=== PATIENT | female | born 1930 | race Caucasian/White ===

== ENCOUNTER 2017-10-29 08:06 | Inpatient (IN) | payer OTHER ==
[2017-10-02 14:13] VITALS: BMI 24.0
--- NOTE | 2017-10-02 14:42 | PAT Medication Instructions ---
Service Date Oct 02, 2017. Current Home Medication List Acetaminophen (Tylenol), 2 TAB PO Q6 PRN for Pain Amlodipine (Norvasc), 5 MG PO QPM Aspirin (Aspirin Ec), 81 MG PO HS Bifidobacterium (Align), 1 CAP PO QD PRN for PRN Biotin (Biotin 5000), 1 CAP PO QAM Cetirizine (Zyrtec), 10 MG PO HS Cholecalciferol (Vitamin D3), 1 CAP PO QAM Famotidine (Pepcid), 20 MG PO QD PRN for Indigestion Hctz/Losartan (Hyzaar 25MG/100MG), 1 TAB PO QAM Levothyroxine Sodium (Levothyroxine Sodium), 1 TAB PO QAM Metoprolol Succinate (Toprol Xl), 25 MG PO QAM Medication Instructions For Your Scheduled Surgery - Hold the following medications the morning of surgery: Bifidobacterium (Align), 1 CAP PO QD PRN for PRN Biotin (Biotin 5000), 1 CAP PO QAM Cholecalciferol (Vitamin D3), 1 CAP PO QAM Hctz/Losartan (Hyzaar 25MG/100MG), 1 TAB PO QAM Famotidine (Pepcid), 20 MG PO QD PRN for Indigestion - Take the following medications the morning of surgery with a sip of water: Levothyroxine Sodium (Levothyroxine Sodium), 1 TAB PO QAM Metoprolol Succinate (Toprol Xl), 25 MG PO QAM Acetaminophen (Tylenol), 2 TAB PO Q6 PRN for Pain (okay to take up to 4 hours prior to surgery if needed) - Take the following medications as scheduled the night before surgery: Famotidine (Pepcid), 20 MG PO QD PRN for Indigestion (if needed) Cetirizine (Zyrtec), 10 MG PO HS Aspirin (Aspirin Ec), 81 MG PO HS Amlodipine (Norvasc), 5 MG PO QPM Bifidobacterium (Align), 1 CAP PO QD PRN for PRN (if needed) Acetaminophen (Tylenol), 2 TAB PO Q6 PRN for Pain (if needed) If you have any questions please call us at [phone] or [phone] or [phone]
--- NOTE | 2017-10-02 15:30 | DIAGNOSTIC IMAGING REPORT ---
CHEST 2 VIEWS ROUTINE CLINICAL HISTORY: pat preoperative evaluation COMPARISON STUDY: No previous studies for comparison. FINDINGS: The bones soft tissues and hemidiaphragms are normal. The cardiomediastinal silhouette is normal. The lungs are clear. The pulmonary vasculature is normal. IMPRESSION: Negative chest. The above report was generated using voice recognition software. It may contain grammatical, syntax or spelling errors. Electronically signed by: Mina Ward M.D. 10/02/2017 3:29 PM Dictated Date/Time: 10/02/2017 3:29 PM
[2017-10-02 16:11] LABS: BASO % 1.2 %; BASO ABS # 0.06 K/uL (0-0.2); HEMATOCRIT 36.4 % (37-47); HEMOGLOBIN 12.3 g/dL (12.0-16.0); IG# 0.01 K/uL (0.00-0.02); LYMPH % 33.2 %; LYMPH ABS # 1.67 K/uL (1.2-3.4); MEAN CELL VOLUME 95.3 fL (80-100); MEAN CORPUSCULAR HEMOGLOBIN 32.2 pg (25-34); MEAN CORPUSCULAR HGB CONC 33.8 g/dl (32-36); MEAN PLATELET VOLUME 10.1 fL (7.4-10.4); MONO % 11.7 %; MONO ABS # 0.59 K/uL (0.11-0.59); NEUT % 47.7 %; PLATELET COUNT 229 K/uL (130-400); RED CELL DISTRIBUTION WIDTH CV 12.8 % (11.5-14.5); RED CELL DISTRIBUTION WIDTH SD 44.1 fL (36.4-46.3); WHITE BLOOD COUNT 5.03 K/uL (4.8-10.8)
[2017-10-02 16:19] LABS: ALBUMIN 3.6 gm/dl (3.4-5.0); CALCIUM 9.1 mg/dl (8.5-10.1); CREATININE 1.5 mg/dl (0.60-1.20); POTASSIUM 4.4 mmol/L (3.5-5.1)
[2017-10-02 16:21] LABS: PTT PATIENT 23.2 SECONDS (21.0-31.0)
[2017-10-03 07:24] LABS: HEMOGLOBIN A1C 5.5 % (4.5-5.6)
--- NOTE | 2017-10-28 18:53 | HISTORY & PHYSICAL EXAMINATION ---
DATE OF ADMISSION: 10/29/2017 CHIEF COMPLAINT: Right knee pain. HISTORY OF PRESENT ILLNESS: This is an 87-year-old female patient of Dr. Mayfield'adela complaining of chronic right knee pain, longstanding, now progressively getting worse. The patient has been diagnosed with end-stage osteoarthritis per clinical and radiographic exams. The patient has failed conservative treatment including intraarticular injections and the use of a knee brace as well as the use of [id number] analgesics. The patient has increased pain with weightbearing activities and her pain does interfere with her activities of daily living. PAST MEDICAL HISTORY: Hypertension, hypothyroidism, osteoarthritis, spine problems, neck problems, back problems, sciatica, acid reflux, stage IV kidney disease. SOCIAL HISTORY: Nonsmoker, nondrinker. FAMILY HISTORY: Noncontributory. REVIEW OF SYSTEMS: The patient complains of chronic right knee pain, otherwise denies any shortness of breath, chest pain, nausea, vomiting or any other joint complaints. PAST SURGICAL HISTORY: Hysterectomy, cholecystectomy, carpal tunnel, knee surgery, colon resection and cataract surgery. MEDICATIONS: 1. Cipro 1 tablet every 12 hours for 10 days as needed for allergies, currently not taking. 2. Amlodipine 5 mg daily. 3. Levothyroxine 50 mcg 1 tablet q.a.m. 4. Losartan/hydrochlorothiazide 100/25 daily q.a.m. 5. Metoprolol 25 mg daily. 6. Biotin 5 mg daily. 7. Aspirin 81 mg daily. 8. Pepcid 20 mg at bedtime p.r.n. heartburn. 9. Zyrtec 10 mg daily. 10. Probiotic 4 mg capsule daily. 11. Vitamin D 2000 units daily. 12. Extra strength Tylenol as needed. ALLERGIES: IV DYE, MORPHINE, AMOXICILLIN, ZOCOR, AND IBUPROFEN. PHYSICAL EXAMINATION: GENERAL: Well-developed, well-nourished 87-year-old female in no acute distress. She is alert and oriented x3 and pleasant. HEENT: Normocephalic, atraumatic. Extraocular motions are intact. Pupils are equal and reactive to light. HEART: Regular rate and rhythm, no murmurs appreciated. LUNGS: Clear. ABDOMEN: Soft and nontender, bowel sounds are present. EXTREMITIES: Right knee reveals a valgus deformity. She has a limited range of motion of 0-120 with crepitation. She has a mild effusion. 4/5 strength. NEUROLOGIC: Neurovascularly intact in her right lower extremity. DIAGNOSES: Right knee end-stage osteoarthritis, hypertension, hypothyroidism, osteoarthritis, spine problems, neck problems, back problems, sciatica, acid reflux and stage IV kidney disease. PLAN: The patient was advised of her diagnosis. Indications, risks, benefits, and postop course have all been reviewed. The patient wishes to proceed with a right total knee arthroplasty. Necessary consent forms, preoperative testing and clearances will be obtained.
[2017-10-29] VITALS (8 sets, daily range): BP systolic 127–187; BP diastolic 63–76; PULSE 67–78; TEMP 36.5–37; O2SAT 95–100; Ht 167.6 cm; Wt 68.0 kg
[~2017-10-29] VITALS: Ht 167.6 cm; Wt 68.0 kg
[~2017-10-29 08:06] MED LIST: ACET-1256 PO; ACETAMINOPHEN 500 MG TAB PO SCH; ALG PO; AMLO-110 PO; ASPI81TA28 PO; BIOTCAP2 PO; BUPIVACAINE 0.5 % 5 MG/1 ML PF 10ML VIAL ONE; CETI10TA84 PO; CHOL2000 PO; DEXAMETHASONE 4 MG TAB PO SCH; FAMO20TA11 PO; FAMOTIDINE 20 MG TAB PO SCH; GABAPENTIN 300 MG CAP PO SCH; HYZ/10015 PO; LEVO50TA6 PO; METO25TA4 PO; METOCLOPRAMIDE HCL 10 MG TAB PO SCH; ROPIVACAINE 5MG/ML 30 ML 150 MG, BUPIVACAINE 0.5% MPF INJ 30 ML, EpINEphrine HCL INJ 0.... INFIL SCH; SODIUM CHLORIDE 0.9% 1000ML 1,000 ML IV SCH; VANCOMYCIN 1GM/270ML NSS 270 ML IV SCH; [UNRECOGNIZED DRUG - REMARK] SCH
[2017-10-29] MEDS ORDERED: MIDAZOLAM HCL 1 MG/ML 2ML VIAL ONE (09:24)
[2017-10-29] MEDS ORDERED: FENTANYL CITRATE INJ 50 MCG/1 ML 2 ML VIAL ONE (09:24)
[2017-10-29] MEDS ORDERED: ONDANSETRON INJ 2 MG/ML 2 ML VIAL ONE (09:29)
[2017-10-29] MEDS ORDERED: PROPOFOL IV EMULSION 10 MG/ML 20 ML VIAL IV ONE (09:29)
[2017-10-29] MEDS ORDERED: LIDOCAINE HCL 2% 2 ML VIAL (20MG/ML) ONE (09:29)
[2017-10-29] MEDS ORDERED: LABETALOL HCL IV 5 MG/ML 20ML IV ONE (09:32)
--- NOTE | 2017-10-29 09:42 | History & Physical Bridge Note ---
H&P Re-Evaluation Bridge Note: I have examined the patient, reviewed the History & Physical and in the interval since the performance of the History & Physical I have noted the following changes of clinical significance: No changes noted
[2017-10-29] MEDS ORDERED: ATROPINE SULFATE 0.1 MG/ML 5ML SYR IV PRN (09:45)
[2017-10-29] MEDS ORDERED: FENTANYL CITRATE INJ 50 MCG/1 ML 2 ML VIAL IV PRN (09:45)
[2017-10-29] MEDS ORDERED: ONDANSETRON INJ 2 MG/ML 2 ML VIAL IV PRN ×2 (09:45→13:45)
[2017-10-29] MEDS ORDERED: EpHEDrine SULFATE INJ 50 MG/ML AMP IV PRN (09:45)
[2017-10-29] MEDS ORDERED: ORTHO JOINT ANESTHETIC ONE (09:59)
[2017-10-29] MEDS ORDERED: BACITRACIN 50000 UNIT VIAL ONE (09:59)
[2017-10-29] MEDS ORDERED: POVIDONE-IODINE OP SOLN 30 ML BTL ONE (09:59)
--- NOTE | 2017-10-29 13:16 | [facility] Post Operative Brief Note ---
Immediate Operative Summary Operative Date Oct 29, 2017. Pre-Operative Diagnosis right knee djd oa Post-Operative Diagnosis same Procedure(s) Performed right TKA Surgeon Chaparro Cocoa Bean Roaster Surgeon(s) Reji Estimated Blood Loss 5 Findings Consistent with Post-Op Diagnosis Specimens bone cuts Drains 2 hemovac Anesthesia Type MAC Spinal Regional Complication(s) none Disposition Disposition: Recovery Room / PACU
[2017-10-29] MEDS ORDERED: OXYCODONE HCL IR 5 MG TAB (IMMEDIATE RELEASE) PO PRN (13:45)
[2017-10-29] MEDS ORDERED: LACTOBACILLUS ACIDOPHILUS (FLORANEX) TAB PO PRN (13:45)
[2017-10-29] MEDS ORDERED: VANCOMYCIN CONSULT ACTIVE PRN (13:45)
[2017-10-29] MEDS ORDERED: ZOLPIDEM TARTRATE 5 MG TAB PO PRN (13:45)
[2017-10-29] MEDS ORDERED: BISACODYL 10 MG SUPP PR PRN (13:45)
[2017-10-29] MEDS ORDERED: MAGNESIUM HYDROXIDE SUSP 30 ML UDC PO PRN (13:45)
[2017-10-29] MEDS ORDERED: FAMOTIDINE 20 MG TAB PO PRN (13:45)
[2017-10-29] MEDS ORDERED: HYDROmorphone INJ 0.5 MG/0.5 ML SYR IV PRN (13:45)
[2017-10-29] MEDS ORDERED: SOD PHOSPHATE/SOD BIPHOSPHATE ENEMA 132 ML BTL PR PRN (13:45)
--- NOTE | 2017-10-29 14:11 | DIAGNOSTIC IMAGING REPORT ---
R KNEE 1 OR 2 VIEWS ROUTINE CLINICAL HISTORY: Postop knee arthroplasty COMPARISON: None. DISCUSSION: There are postsurgical changes of a total right knee arthroplasty and patellar resurfacing. The femoral and tibial components appear well seated. Overlying skin penny and surgical drains are evident. There is a small amount of air within soft tissues consistent with recent surgery. IMPRESSION: Postsurgical changes of a total right knee arthroplasty Electronically signed by: Pio Pollock M.D. 10/29/2017 2:10 PM Dictated Date/Time: 10/29/2017 2:09 PM
--- NOTE | 2017-10-29 14:14 | Anesthesiology Progress Note ---
Anesthesia Post Op Note Date & Time Oct 29, 2017 at 14:13 Vital Signs Pain Intensity: 0 Vital Signs Past 12 Hours Date Time Temp Pulse Resp B/P (MAP) Pulse Ox O2 Delivery O2 Flow Rate FiO2 10/29/17 14:08 36.8 10/29/17 14:05 66 15 99 10/29/17 14:05 67 15 10/29/17 14:02 154/58 10/29/17 14:00 73 17 99 10/29/17 14:00 70 17 10/29/17 13:56 150/77 10/29/17 13:55 74 13 99 10/29/17 13:55 68 13 10/29/17 13:54 69 19 100 10/29/17 13:54 68 19 10/29/17 13:51 138/61 10/29/17 13:49 69 16 99 10/29/17 13:49 70 16 10/29/17 13:46 146/79 10/29/17 13:44 73 16 10/29/17 13:44 74 16 100 10/29/17 13:41 141/60 10/29/17 13:39 75 19 10/29/17 13:39 75 19 100 10/29/17 13:36 134/58 10/29/17 13:34 36.4 79 16 129/60 97 Nasal Cannula 4 10/29/17 13:34 78 10/29/17 13:34 78 129/60 96 10/29/17 08:40 36.6 70 16 174/76 99 Room Air Notes Mental Status: alert / awake / arousable, participated in evaluation Pt Amnestic to Procedure: Yes Nausea / Vomiting: adequately controlled Pain: adequately controlled Airway Patency, RR, SpO2: stable & adequate BP & HR: stable & adequate Hydration State: stable & adequate Neuraxial Anesthesia: was administered, sensory block is resolving Anesthetic Complications: no major complications apparent
[2017-10-29] MEDS: TRANEXAMIC ACID INJ 1,000 MG x 2 Bags IV SCH ×4 (15:08→15:09)
[2017-10-29] MEDS: TRAMADOL HCL 50 MG TAB PO PRN ×2 (16:22→20:29)
[2017-10-29] MEDS: D5W AND 1/2NSS + 20MEQ KCL 1,000 ML IV SCH (16:27)
[2017-10-29 17:07] LABS: HEMATOCRIT 36.2 % (37-47); HEMOGLOBIN 12.3 g/dL (12.0-16.0); MEAN CORPUSCULAR HEMOGLOBIN 32.3 pg (25-34); MEAN PLATELET VOLUME 9.1 fL (7.4-10.4); PLATELET COUNT 215 K/uL (130-400); RED CELL DISTRIBUTION WIDTH CV 12.6 % (11.5-14.5); RED CELL DISTRIBUTION WIDTH SD 43.1 fL (36.4-46.3); WHITE BLOOD COUNT 5.07 K/uL (4.8-10.8)
[2017-10-29 17:25] LABS: CALCIUM 8.3 mg/dl (8.5-10.1); CREATININE 1.7 mg/dl (0.60-1.20); POTASSIUM 4.1 mmol/L (3.5-5.1)
--- NOTE | 2017-10-29 19:45 | Medical Consult ---
Consultation Date of Consultation: Oct 29, 2017. Attending Physician: Pillo Mayfield M.D. Reason for Consultation: Medical management History of Present Illness 87-year-old female with PMH of osteoarthritis, HTN, Hypothyroidism, CKD with longstanding chronic right knee pain failed conservative management including intraarticular injections, used of knee brace and pain control. Due to increased pain with weightbearing activities she had right TKA surgery done this morning by Dr. Mayfield. [facility] was consulted for medical management. Pt was lying in bed with no distress with daughter at bedside. She said that she does not have any pain at this moment. Denies any chest pain, palpitation, dizziness and SOB. Past Medical/Surgical History Osteoarthritis HTN Hypothyroidism CKD Social History Smoking Status: Never Smoker Allergies Coded Allergies: Alendronate (Verified Allergy, Unknown, GI ISSUES, 10/02/17) Amoxicillin (Verified Allergy, Unknown, RASH, 10/02/17) Ciprofloxacin (Verified Allergy, Unknown, HIVES, 10/02/17) Ibuprofen (Verified Allergy, Unknown, SWELLING, 10/02/17) Iodinated Diagnostic Agents (Verified Allergy, Unknown, HIVES, FLUSHING, "TURNED RED", 10/02/17) Metoclopramide (Verified Allergy, Unknown, UNKNOWN RXN PER PATIENT, ) Simvastatin (Verified Allergy, Unknown, MUSCLE COMPLAINTS, 10/02/17) Morphine (Verified Adverse Reaction, Unknown, NAUSEA AND VOMITING, 10/02/17 ) Current Inpatient Medications Current Inpatient Medications Medications (Trade) Dose Ordered Sig/Minal Route Start Time Stop Time Status Last Admin Dose Admin Sodium Chloride 1,000 ml @ 15 mls/hr Q24H IV 10/29/17 06:00 10/30/17 05:59 Amlodipine Besylate (Norvasc Tab) 5 mg QPM PO 10/29/17 21:00 11/28/17 20:59 Cetirizine HCl (zyrTEC TAB) 10 mg HS PO 10/29/17 21:00 11/28/17 20:59 Famotidine (Pepcid Tab) 20 mg QD PRN PO 10/29/17 13:45 11/28/17 13:44 HCTZ/Losartan Potassium (Hyzaar 50-12.5 Tab) 1 tab QAM PO 10/30/17 09:00 11/29/17 08:59 Levothyroxine Sodium (Synthroid Tab) 50 mcg DAILYBB PO 10/30/17 06:00 11/29/17 06:59 Metoprolol Succinate (Toprol Xl Tab) 25 mg QAM PO 10/30/17 09:00 11/29/17 08:59 Lactobacillus Acidophilus (Floranex Tab) 1 tab QD PRN PO 10/29/17 13:45 11/28/17 13:44 Cholecalciferol (Vitamin D Tab) 2,000 inter.unit QAM PO 10/30/17 09:00 11/29/17 08:59 Potassium Chloride/Dextrose/ Sod Cl 1,000 ml @ 100 mls/hr Q10H IV 10/29/17 15:15 10/30/17 13:33 10/29/17 16:27 100 MLS/HR Vancomycin HCl 1000 mg/Sodium Chloride 270 ml @ 125 mls/hr TODAY@2100 IV 10/29/17 21:00 10/29/17 23:10 Oxycodone HCl (Roxicodone Immediate Rel Tab) 1 TABLET FOR PAIN RATING... Q4H PRN PO 10/29/17 13:45 11/12/17 13:44 Magnesium Hydroxide (Milk Of Magnesia Susp) 30 ml Q6H PRN PO 10/29/17 13:45 11/28/17 13:44 Bisacodyl (Dulcolax Supp) 10 mg DAILY PRN WA 10/29/17 13:45 11/28/17 13:44 Sodium Biphosphate/ Sodium Phosphate (Fleet Enema) 132 ml DAILY PRN [place] 10/29/17 13:45 11/28/17 13:44 Docusate Sodium (coLACE CAP) 100 mg BID PO 10/29/17 21:00 11/28/17 20:59 Diphenhydramine HCl (Benadryl Cap) 25 mg Q8H PRN PO 10/29/17 13:45 11/28/17 13:44 Zolpidem Tartrate (Ambien Tab) 5 mg HSZ PRN PO 10/29/17 13:45 11/28/17 13:44 Multivitamins (Multivitamin Tab) 1 tab QAM PO 10/30/17 09:00 11/29/17 08:59 Ondansetron HCl (Zofran Inj) 4 mg Q6H PRN IV 10/29/17 13:45 11/28/17 13:44 Pantoprazole Sodium (Protonix Tab) 40 mg QAM PO 10/30/17 09:00 11/02/17 09:01 Tramadol HCl (Ultram Tab) 1 tablet for pain rating... Q4H PRN PO 10/29/17 13:45 11/28/17 13:44 10/29/17 16:22 100 MG Aspirin (Ecotrin Tab) 81 mg BID PO 10/29/17 21:00 11/28/17 20:59 Hydromorphone HCl (Dilaudid Inj) 0.5 mg Q4H PRN IV 10/29/17 13:45 11/12/17 13:44 Acetaminophen 1000 mg/Empty Bag 100 ml @ 400 mls/hr Q8H IV 10/29/17 22:00 11/28/17 21:59 Review of Systems Constitutional: No fever, No chills Eyes: No worsening of vision, No discharge ENT: No nasal symptoms, No sore throat Respiratory: No cough, No sputum, No shortness of breath Cardiovascular: No chest pain, No palpitations Abdomen: No pain, No nausea, No vomiting Genitourinary - Female: No dysuria Neurologic: No paralysis Psychiatric: + anxiety, No substance abuse Hematologic / Lymphatic: No abnormal bleeding/bruising, No clotting problems Integumentary: No rash, No itch Physical Exam Date Time Temp Pulse Resp B/P (MAP) Pulse Ox O2 Delivery O2 Flow Rate FiO2 10/29/17 17:38 36.6 75 18 176/71 (106) 97 Room Air 10/29/17 16:35 36.6 76 18 159/74 (102) 96 Room Air 10/29/17 15:30 36.6 78 18 186/68 (107) 96 Room Air 10/29/17 15:00 36.7 72 18 187/64 (105) 100 Nasal Cannula 2.0 10/29/17 14:25 Nasal Cannula 2.0 10/29/17 14:25 37.0 67 16 159/63 (95) 99 Nasal Cannula 2.0 10/29/17 14:25 99 Nasal Cannula 2.0 10/29/17 14:16 66 14 151/58 98 10/29/17 14:16 66 14 10/29/17 14:11 67 15 10/29/17 14:11 67 15 151/66 99 10/29/17 14:08 36.8 10/29/17 14:07 158/64 10/29/17 14:06 68 17 10/29/17 14:06 74 17 99 10/29/17 14:05 66 15 99 10/29/17 14:05 67 15 10/29/17 14:02 154/58 10/29/17 14:00 73 17 99 10/29/17 14:00 70 17 10/29/17 13:56 150/77 10/29/17 13:55 74 13 99 10/29/17 13:55 68 13 10/29/17 13:54 69 19 100 10/29/17 13:54 68 19 10/29/17 13:51 138/61 10/29/17 13:49 69 16 99 10/29/17 13:49 70 16 10/29/17 13:46 146/79 10/29/17 13:44 73 16 10/29/17 13:44 74 16 100 10/29/17 13:41 141/60 10/29/17 13:39 75 19 10/29/17 13:39 75 19 100 10/29/17 13:36 134/58 10/29/17 13:34 36.4 79 16 129/60 97 Nasal Cannula 4 10/29/17 13:34 78 10/29/17 13:34 78 129/60 96 10/29/17 08:40 36.6 70 16 174/76 99 Room Air General Appearance: WD/WN, no apparent distress Head: normocephalic, atraumatic Eyes: normal inspection, PERRL ENT: normal ENT inspection Neck: no JVD Respiratory/Chest: chest non-tender, normal breath sounds, no respiratory distress, no accessory muscle use Cardiovascular: no edema, no JVD Abdomen/GI: normal bowel sounds, non tender, soft Back: no CVA tenderness Extremities/Musculoskelatal: no calf tenderness Neurologic/Psych: no motor/sensory deficits, alert Skin: normal color, warm/dry Laboratory Results Last 24 Hours Test 10/29/17 16:56 White Blood Count 5.07 K/uL Red Blood Count 3.81 M/uL Hemoglobin 12.3 g/dL Hematocrit 36.2 % Mean Corpuscular Volume 95.0 fL Mean Corpuscular Hemoglobin 32.3 pg Mean Corpuscular Hemoglobin Concent 34.0 g/dl RDW Standard Deviation 43.1 fL RDW Coefficient of Variation 12.6 % Platelet Count 215 K/uL Mean Platelet Volume 9.1 fL Sodium Level 140 mmol/L Potassium Level 4.1 mmol/L Chloride Level 109 mmol/L Carbon Dioxide Level 22 mmol/L Anion Gap 9.0 mmol/L Blood Urea Nitrogen 26 mg/dl Creatinine 1.70 mg/dl Est Creatinine Clear Calc Drug Dose 21.8 ml/min Estimated GFR () 30.9 Estimated GFR (Non- 26.6 BUN/Creatinine Ratio 15.2 Random Glucose 178 mg/dl Calcium Level 8.3 mg/dl Assessment & Plan Right Kneed pain S/P right TKA performed by Dr. Sorto No post- op complication Continue monitor H/H Pain control as per ortho Incentive spirometry PT/OT HTN BP elevated Possible related to anxiety and pain Continue amlodipine and losartan Will hold HCTZ and resume in am Will add hydralazine prn Continue monitor BMP CKD creatine was 1.5 on 09/27 Hold HCTZ for now Monitor BMP DVT px As per Ortho CODE STATUS FULL CODE
[2017-10-29] MEDS ORDERED: HydrALAZINE HCL 20 MG/ML VIAL IV. PRN (20:00)
[2017-10-29] MEDS: DOCUSATE SODIUM 100 MG CAP PO SCH (20:28)
[2017-10-29] MEDS: CETIRIZINE HCL 10 MG TAB PO SCH (20:30)
[2017-10-29] MEDS: ASPIRIN 81 MG ECTAB PO SCH (20:30)
[2017-10-29] MEDS: AMLODIPINE BESYLATE 5 MG TAB PO SCH (20:30)
[2017-10-29] MEDS ORDERED: VANCOMYCIN INJ 1,000 MG in SODIUM CHLORIDE 0.9% 250ML 250 ML IV SCH (21:00)
[2017-10-29] MEDS: ACETAMINOPHEN IV 1,000 MG in EMPTY BAG 0 ML IV SCH (22:17)
[2017-10-30] MEDS: TRAMADOL HCL 50 MG TAB PO PRN ×3 (02:25→17:40)
[2017-10-30 02:50] VITALS: BP 150/73; PULSE 75; TEMP 36.6; O2SAT 98
[2017-10-30] MEDS: LEVOTHYROXINE 50 MCG TAB PO SCH (05:05)
[2017-10-30] MEDS: D5W AND 1/2NSS + 20MEQ KCL 1,000 ML IV SCH ×2 (05:05→10:22)
[2017-10-30] MEDS: ACETAMINOPHEN IV 1,000 MG in EMPTY BAG 0 ML IV SCH ×3 (05:11→20:58)
[2017-10-30 07:01] LABS: HEMATOCRIT 32.4 % (37-47); HEMOGLOBIN 11.1 g/dL (12.0-16.0); MEAN CELL VOLUME 93.4 fL (80-100); MEAN CORPUSCULAR HGB CONC 34.3 g/dl (32-36); MEAN PLATELET VOLUME 9.6 fL (7.4-10.4); PLATELET COUNT 222 K/uL (130-400); RED CELL DISTRIBUTION WIDTH CV 12.4 % (11.5-14.5); RED CELL DISTRIBUTION WIDTH SD 42.2 fL (36.4-46.3); WHITE BLOOD COUNT 11.19 K/uL (4.8-10.8)
[2017-10-30 07:29] VITALS: BP 162/75; PULSE 73; TEMP 37; O2SAT 95
[2017-10-30 07:30] LABS: CALCIUM 8.2 mg/dl (8.5-10.1); CREATININE 1.35 mg/dl (0.60-1.20); POTASSIUM 4.5 mmol/L (3.5-5.1)
--- NOTE | 2017-10-30 07:42 | Orthopedic Progress Note ---
Orthopedic Progress Note Date of Service Oct 30, 2017. Subjective Post OP Day: 1 Reports: feeling well, pain controlled w PO medications, Denies: complaints, chest pain, SOB, nausea / vomiting, light headedness, calf pain Objective calves soft nontender, N/V intact, capillary refill less than 2 sec., dressing C /D/I, A&O x3, toes mobile Date Time Temp Pulse Resp B/P (MAP) Pulse Ox O2 Delivery O2 Flow Rate FiO2 10/30/17 07:29 37.0 73 16 162/75 (104) 95 Room Air 10/30/17 02:50 36.6 75 19 150/73 (98) 98 Room Air 10/29/17 23:18 Room Air 10/29/17 23:04 36.5 71 18 127/71 (89) 95 Room Air 10/29/17 20:14 36.5 77 18 156/66 (96) 97 Room Air 10/29/17 17:38 36.6 75 18 176/71 (106) 97 Room Air 10/29/17 16:35 36.6 76 18 159/74 (102) 96 Room Air 10/29/17 15:30 36.6 78 18 186/68 (107) 96 Room Air 10/29/17 15:30 Nasal Cannula 2.0 10/29/17 15:00 36.7 72 18 187/64 (105) 100 Nasal Cannula 2.0 10/29/17 14:25 Nasal Cannula 2.0 10/29/17 14:25 37.0 67 16 159/63 (95) 99 Nasal Cannula 2.0 10/29/17 14:25 99 Nasal Cannula 2.0 10/29/17 14:16 66 14 151/58 98 10/29/17 14:16 66 14 10/29/17 14:11 67 15 18 14:11 67 15 151/66 99 10/29/17 14:08 36.8 10/29/17 14:07 158/64 10/29/17 14:06 68 17 10/29/17 14:06 74 17 99 10/29/17 14:05 66 15 99 10/29/17 14:05 67 15 10/29/17 14:02 154/58 10/29/17 14:00 73 17 99 10/29/17 14:00 70 17 10/29/17 13:56 150/77 10/29/17 13:55 74 13 99 10/29/17 13:55 68 13 10/29/17 13:54 69 19 100 10/29/17 13:54 68 19 10/29/17 13:51 138/61 10/29/17 13:49 69 16 99 10/29/17 13:49 70 16 10/29/17 13:46 146/79 10/29/17 13:44 73 16 10/29/17 13:44 74 16 100 10/29/17 13:41 141/60 10/29/17 13:39 75 19 10/29/17 13:39 75 19 100 10/29/17 13:36 134/58 10/29/17 13:34 36.4 79 16 129/60 97 Nasal Cannula 4 10/29/17 13:34 78 10/29/17 13:34 78 129/60 96 10/29/17 08:40 36.6 70 16 174/76 99 Room Air Laboratory Results 24 Hours: Test 10/29/17 16:56 10/30/17 06:36 Hematocrit 36.2 % 32.4 % Hemoglobin 12.3 g/dL 11.1 g/dL Assessment & Plan Assessment: POD #1, Right TKA Plan: PT/ OT DVT proph- ASA D/C planning- Home w HH As per medicine Inhouse Planning Pain Management: Ultram, Dilaudid, IV Tylenol, Oxy IR DVT Prophylaxis: TEDs, SCDs, ASA Discharge Planning Discharge Planning: home with home health Pain Management: Ultram, PO Tylenol, Oxy IR DVT Prophylaxis: TEDs, SCDs, ASA Therapy: Physical Therapy, Occupational Therapy
--- NOTE | 2017-10-30 07:55 | OPERATIVE REPORT ---
DATE OF OPERATION: 10/29/2017 INDICATION FOR PROCEDURE: The patient is an 87-year-old female with progressive osteoarthritis in her right knee and painful right knee. She is getting a little bit of pain in her left knee now since her knee replacement. She had left knee replacement in the past and had undersurface of the patella. Right knee, she is [id number] in the lateral compartment and a valgus knee and clinically she had some instability. PREOPERATIVE DIAGNOSIS: End-stage osteoarthritis, right knee. POSTOPERATIVE DIAGNOSIS: Same. PROCEDURE: Right total knee arthroplasty. SURGEON: Pillo Mayfield MD. SERICULTURIST: Mina Mendoza PA-C. ANESTHESIA: Spinal, regional block and Orthomix. OPERATIVE PROCEDURE: The patient was taken to the operating room and anesthetized under anesthesia as dictated. She was placed supine on the operating room table. Pneumatic tourniquet was placed on the right upper thigh. Right lower extremity was prepped and draped in the usual sterile fashion. Her knee exam demonstrates about 10-15 degrees of hyperextension. She had a lot of varus valgus laxity both medial and lateral with unstable knee. She had excellent flexion, greater than 135 degrees. Her right lower extremity was then prepped and draped with ChloraPrep in usual sterile fashion. I did place a pneumatic tourniquet about her right upper thigh prior. After the leg was sterilely prepped and draped, the leg was elevated, exsanguinated with Esmarch bandage, pneumatic tourniquet was raised to 300 mmHg. The knee was then exposed via an anterior longitudinal incision. Skin was incised sharply. Subcutaneous flaps were elevated and incision was made through the medial retinaculum and extended up in the mid third of the quadriceps tendon and extended down to the medial tibial tubercle. Intraarticular findings demonstrated [id number] in the lateral compartment. She had some arthritic changes on the patella. There was a grade 4 wear on the patella articular surface medial and lateral facet. The Person[employer] total knee arthroplasty system was used with the MC insert. We used MRI templating with custom cutting guides. To expose the knee, the infrapatellar fat pad was resected, the cruciate ligaments were resected, the menisci resected. A small portion of the fat pad over the anterior femur was resected for placement of an anterior flange of the component. The femur was exposed. The custom femoral cutting guide was pinned in position, then the distal femoral cut was made. This was sized for a 9 component. The 9 4-in-1 cutting block was placed. Anterior, posterior and chamfer cuts were made. The knee was extended and subperiosteal peel lateral release was performed around the patella. Patella width was measured and the patella cut was made with freehand cut technique and the width was reproduced using a 32 x 8 mm 3-peg domed patella. Excess lateral facet was beveled off to prevent any impingement. The tibia was then subluxed and custom tibial cutting block was pinned in position. The bone soft and looked like it was placing us in some varus, so we abandoned the custom cutting block and went ahead with an external tibial cutting guide. We placed about 3 degrees of posterior slope on the guide and I made a perpendicular cut to the long axis of the tibia. We made this below the most deficient lateral side. Then, we used the lamina occupational health physiotherapist to ensure ligaments balance in extension and flexion. 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 The drill and punch were used for the tibial stem and then we went ahead and placed on the 9 trial femoral component which was centered and had an excellent fit. The trial MC poly insert was placed and a 10 gave full extension, full flexion, stable collateral ligaments through full range of motion. There was a slight liftoff of the patella and I felt we needed to do a lateral release, so lateral retinaculum was released leaving the synovium intact and patella tracked completely centrally at this time. The trials were then all removed and the anesthetic Orthomix cocktail was injected per protocol. The knee was copiously irrigated with pulsatile lavage with antibiotic solution and bacitracin. Then, the final components were cemented with Simplex cement. Final components were the 9 standard CR femoral component, the E tibia with a small stem attached and the MC 10 mm poly insert, and 32 x 8.5 mm 3-peg domed patella. While the cement cured, we used the Betadine soak per protocol. The knee was copiously irrigated with antibiotic solution and bacitracin until the wound was irrigated out thoroughly. Then, 2 drains were brought out laterally and connected to Hemovac. Then, the quadriceps tendon and medial retinaculum were closed with interrupted [id number] #1 Vicryl sutures. The knee was taken through full range of motion and repair was secured. The subcutaneous tissue was closed with interrupted 2-0 Vicryl sutures, skin closed with penny. Silverlon dressing was placed. The patient tolerated the procedure well. Mina Mendoza PA-C, was my first beater who functioned as first beater throughout the entire procedure. He assisted in patient positioning, prepping, draping, leg positioning, soft tissue retraction, instrument management, and performed the fascial, subcutaneous and skin closure, and will participate in postop care of the patient. I attest to the content of the Intraoperative Record and any orders documented therein. Any exception s are noted below.
[2017-10-30] MEDS: ASPIRIN 81 MG ECTAB PO SCH ×2 (08:47→19:46)
[2017-10-30] MEDS: DOCUSATE SODIUM 100 MG CAP PO SCH ×2 (08:47→19:47)
[2017-10-30] MEDS: MULTIVITAMIN TAB PO SCH (08:47)
[2017-10-30] MEDS: METOPROLOL SUCC 25MG EXT REL TAB PO SCH (08:48)
[2017-10-30] MEDS: PANTOprazole SOD 40 MG TAB PO SCH (08:48)
[2017-10-30] MEDS: CHOLECALCIFEROL 1000 INTER.UNIT TAB PO SCH (08:48)
[2017-10-30] MEDS ORDERED: LOSARTAN/HCTZ 50-12.5 EA TAB PO SCH (09:00)
[2017-10-30] MEDS ORDERED: NON-FORMULARY MEDICATION (Biotin (Biotin 5000) 1 CAP) PO SCH (09:00)
[2017-10-30 11:50] VITALS: BP 147/80; PULSE 68; TEMP 37; O2SAT 96
[2017-10-30 14:58] VITALS: BP 152/76; PULSE 70; TEMP 36.7; O2SAT 95
[2017-10-30] MEDS ORDERED: ACETAMINOPHEN IV 1,000 MG in EMPTY BAG 0 ML IV SCH (18:00)
[2017-10-30] MEDS ORDERED: LOSARTAN POTASSIUM 50 MG TAB PO ONE (19:06)
[2017-10-30] MEDS: CETIRIZINE HCL 10 MG TAB PO SCH (20:54)
[2017-10-30] MEDS: AMLODIPINE BESYLATE 5 MG TAB PO SCH (20:54)
--- NOTE | 2017-10-30 21:18 | Progress Note ---
Medicine Progress Note Date & Time of Visit: Oct 30, 2017 at 21:13. Subjective Seen resting in bed comfortable in good spirits States she has small right knee pain today than yesterday but otherwise ambulating okay Denies dizziness shortness of breath chest pain Reports facial flushing sensation of burning around her eyes started around 2 PM , denies shortness of breath tongue swelling or throat swelling or lip swelling denies hives Otherwise no other symptoms Objective Last 8 Hrs Date Time Temp Pulse Resp B/P (MAP) Pulse Ox O2 Delivery O2 Flow Rate FiO2 10/30/17 19:30 Room Air 10/30/17 14:58 36.7 70 18 152/76 (101) 95 Room Air Physical Exam: General-oriented 3 not in distress speaking in sentences no accessory muscle use Head- atraumatic Positive for mild erythema over the cheeks Eyes- PERRL, EOMI, anicteric ENT- oropharynx clear Neck- supple, no JVD, no adenopathy, no thyromegaly; carotids +2/2, Lungs- clear breath sounds bilaterally Heart- regular rhythm; no murmur, normal rate Abdomen- normal bowel sounds, soft, nontender Extremities-right lower leg with heavy bandaging in place and wound drain in place Neuro- alert, oriented x 3; no gross focal motor or sensory deficits no other gross focal neurologic deficits Skin- warm & dry Laboratory Results: Last 24 Hours Test 10/30/17 06:36 White Blood Count 11.19 K/uL Red Blood Count 3.47 M/uL Hemoglobin 11.1 g/dL Hematocrit 32.4 % Mean Corpuscular Volume 93.4 fL Mean Corpuscular Hemoglobin 32.0 pg Mean Corpuscular Hemoglobin Concent 34.3 g/dl RDW Standard Deviation 42.2 fL RDW Coefficient of Variation 12.4 % Platelet Count 222 K/uL Mean Platelet Volume 9.6 fL Sodium Level 136 mmol/L Potassium Level 4.5 mmol/L Chloride Level 105 mmol/L Carbon Dioxide Level 22 mmol/L Anion Gap 9.0 mmol/L Blood Urea Nitrogen 24 mg/dl Creatinine 1.35 mg/dl Est Creatinine Clear Calc Drug Dose 27.5 ml/min Estimated GFR () 40.8 Estimated GFR (Non- 35.2 BUN/Creatinine Ratio 17.6 Random Glucose 124 mg/dl Calcium Level 8.2 mg/dl Assessment & Plan Right Kneed pain S/P right TKA performed by Dr. Sorto Has some mild blood pressure elevation management noted below Otherwise stable overall after surgery HTN BP elevated Already unusual amlodipine and metoprolol Resume losartan Hold HCTZ Monitor Facial erythema Could be from vancomycin received yesterday Could be from linens/detergents used in hospital Not worsening Already on Zyrtec at bedtime will continue that for now and monitor closely CKD Stable creatine was 1.5 on 09/27 Hold HCTZ for now Monitor BMP Thank you for this consultation. We will follow the patient with you during their hospital stay. You can reach a member of the [facility] Hospitalist Team 02/04 via pager @ [phone]. Current Inpatient Medications: Current Inpatient Medications Medications (Trade) Dose Ordered Sig/Minal Route Start Time Stop Time Status Last Admin Dose Admin Amlodipine Besylate (Norvasc Tab) 5 mg QPM PO 10/29/17 21:00 11/28/17 20:59 10/30/17 20:54 5 MG Cetirizine HCl (zyrTEC TAB) 10 mg HS PO 10/29/17 21:00 11/28/17 20:59 10/30/17 20:54 10 MG Famotidine (Pepcid Tab) 20 mg QD PRN PO 10/29/17 13:45 11/28/17 13:44 HCTZ/Losartan Potassium (Hyzaar 50-12.5 Tab) 1 tab QAM PO 10/30/17 09:00 11/29/17 08:59 Future Hold Levothyroxine Sodium (Synthroid Tab) 50 mcg DAILYBB PO 10/30/17 06:00 11/29/17 06:59 10/30/17 05:05 50 MCG Metoprolol Succinate (Toprol Xl Tab) 25 mg QAM PO 10/30/17 09:00 11/29/17 08:59 10/30/17 08:48 25 MG Lactobacillus Acidophilus (Floranex Tab) 1 tab QD PRN PO 10/29/17 13:45 11/28/17 13:44 Cholecalciferol (Vitamin D Tab) 2,000 inter.unit QAM PO 10/30/17 09:00 11/29/17 08:59 10/30/17 08:48 2,000 INTER.UNIT Oxycodone HCl (Roxicodone Immediate Rel Tab) 1 TABLET FOR PAIN RATING... Q4H PRN PO 10/29/17 13:45 11/12/17 13:44 Magnesium Hydroxide (Milk Of Magnesia Susp) 30 ml Q6H PRN PO 10/29/17 13:45 11/28/17 13:44 Bisacodyl (Dulcolax Supp) 10 mg DAILY PRN MT 10/29/17 13:45 11/28/17 13:44 Sodium Biphosphate/ Sodium Phosphate (Fleet Enema) 132 ml DAILY PRN MT 10/29/17 13:45 11/28/17 13:44 Docusate Sodium (coLACE CAP) 100 mg BID PO 10/29/17 21:00 11/28/17 20:59 Diphenhydramine HCl (Benadryl Cap) 25 mg Q8H PRN PO 10/29/17 13:45 11/28/17 13:44 Zolpidem Tartrate (Ambien Tab) 5 mg HSZ PRN PO 10/29/17 13:45 11/28/17 13:44 Multivitamins (Multivitamin Tab) 1 tab QAM PO 10/30/17 09:00 11/29/17 08:59 10/30/17 08:47 1 TAB Ondansetron HCl (Zofran Inj) 4 mg Q6H PRN IV 10/29/17 13:45 11/28/17 13:44 Pantoprazole Sodium (Protonix Tab) 40 mg QAM PO 10/30/17 09:00 11/02/17 09:01 10/30/17 08:48 40 MG Tramadol HCl (Ultram Tab) 1 tablet for pain rating... Q4H PRN PO 10/29/17 13:45 11/28/17 13:44 10/30/17 17:40 100 MG Aspirin (Ecotrin Tab) 81 mg BID PO 10/29/17 21:00 11/28/17 20:59 10/30/17 19:46 81 MG Hydromorphone HCl (Dilaudid Inj) 0.5 mg Q4H PRN IV 10/29/17 13:45 11/12/17 13:44 Acetaminophen 1000 mg/Empty Bag 100 ml @ 400 mls/hr Q8H IV 2/19/18 22:00 11/28/17 21:59 10/30/17 20:58 400 MLS/HR Hydralazine HCl (HydrALAZINE INJ) 5 mg Q6 PRN IV. 10/29/17 20:00 11/28/17 19:59 Losartan Potassium (coZAAR TAB) 50 mg QAM PO 10/31/17 09:00 11/30/17 08:59
[2017-10-30 23:08] VITALS: BP 165/71; PULSE 60; TEMP 36.6; O2SAT 95
[2017-10-31] MEDS: TRAMADOL HCL 50 MG TAB PO PRN ×2 (02:36→08:21)
[2017-10-31] MEDS: LEVOTHYROXINE 50 MCG TAB PO SCH (05:05)
[2017-10-31] MEDS: ACETAMINOPHEN IV 1,000 MG in EMPTY BAG 0 ML IV SCH (05:06)
--- NOTE | 2017-10-31 07:25 | Orthopedic Progress Note ---
Orthopedic Progress Note Date of Service Oct 31, 2017. Subjective Post OP Day: 2 Reports: feeling well, pain controlled w PO medications, Denies: complaints, chest pain, SOB, nausea / vomiting, light headedness, calf pain Objective calves soft nontender, N/V intact, capillary refill less than 2 sec., dressing C /D/I, A&O x3, toes mobile Having some facial erythema, denies itching, swelling, pain, breathing trouble, NO symptoms. No rash any where else. Patient feels as though may be the linens? Date Time Temp Pulse Resp B/P (MAP) Pulse Ox O2 Delivery O2 Flow Rate FiO2 10/30/17 23:08 36.6 60 17 165/71 (102) 95 Room Air 10/30/17 19:30 Room Air 10/30/17 14:58 36.7 70 18 152/76 (101) 95 Room Air 10/30/17 11:50 37.0 68 16 147/80 (102) 96 Room Air 10/30/17 07:54 Room Air 10/30/17 07:29 37.0 73 16 162/75 (104) 95 Room Air Laboratory Results 24 Hours: Test 10/31/17 06:59 Assessment & Plan Assessment: POD #2, Right TKA Plan: PT/ OT DVT proph- ASA D/C planning- Home w HH today As per medicine Inhouse Planning Pain Management: Ultram, Dilaudid, IV Tylenol, Oxy IR DVT Prophylaxis: TEDs, SCDs, ASA Discharge Planning Discharge Planning: home with home health Pain Management: Ultram, PO Tylenol, Oxy IR DVT Prophylaxis: TEDs, SCDs, ASA Therapy: Physical Therapy, Occupational Therapy
[2017-10-31 07:26] VITALS: BP 156/71; PULSE 62; TEMP 36.8; O2SAT 93
[2017-10-31] MEDS ORDERED: ASPEC81 PO (07:29)
[2017-10-31] MEDS ORDERED: ULT50X PO (07:29)
--- NOTE | 2017-10-31 07:30 | Discharge Instructions ---
Discharge Instructions Date of Service Oct 31, 2017. Admission Reason for Admission: Right Knee Degenerative Joint Disease Discharge Discharge Diagnosis / Problem: Right TKA Discharge Goals Goal(s): Improve function Activity Recommendations Activity Limitations: as noted below . Instructions / Follow-Up Instructions / Follow-Up ACTIVITY RECOMMENDATIONS: SELF CARE INSTRUCTIONS AFTER TOTAL KNEE REPLACEMENT A. You may need to continue a physical therapy program after discharge from the hospital. There are several options available to you. Your doctor will assist you in selecting the best one for you. 1. An out-patient facility 2 to 3 times a week for therapy or home therapy. 2. Continue working on all exercises taught to you in the hospital. Your goals should be to increase bending of your knee to 90 degrees and beyond and to fully straighten your knee. B. You may progress at your own pace from walking with a walker or crutches to a cane; then to no assistive devices. C. Make walking a part of your daily routine. Be up as much as comfortable with rest periods throughout the day. Rest with leg elevation is very important. Use the ice wrap frequently for the first 3-4 weeks. D. There are no restrictions on activities. You may ride in a car, shop, participate in department administrator and all social activities. E. Wear the long elastic stockings (AMBER hose) 20 hours a day for 2 weeks after surgery. They can be removed several times a day for laundering and for a bath. F. You may shower, no tub baths until cleared by your doctor. SPECIAL CARE INSTRUCTIONS: VERY IMPORTANT TO READ AND REVIEW A. There are a few signs you need to watch for after you are home. Call [facility] if you notice any of the followin. Increased severe knee pain. Some pain is expected especially when you exercise. 2. Increased swelling in your leg or knee; pain or swelling of the calf muscle in either lower leg. 3. Any fluid drainage from the incision. 4. Shortness of breath or chest pain. B. Please call [facility] at if you have any concerns or questions about your operation or recovery. The doctor or his nurse will return your call promptly. C. You must take antibiotics before dental work, bladder, bowel or other surgery. Your doctor will provide you with a permanent care to carry describing this precaution. IMPORTANT: * REMEMBER TO TAKE ASPIRIN, 81 MG, TWICE DAILY FOR 4 WEEKS UNLESS OTHERWISE DIRECTED. THIS IS YOUR BLOOD THINNER. * HIGH RISK PATIENTS MAY BE PRESCRIBED A STRONGER BLOOD THINNER. THIS WILL BE PROVIDED AT DISCHARGE. * CALL IF INCREASED PAIN, REDNESS, DRAINAGE OR FEVER GREATER THAT 101. * WEAR AMBER HOSE 20 HOURS PER DAY FOR 2 WEEKS. * YOU MAY HAVE A LARGE BAND-AID LIKE DRESSING (SILVERON). THIS WILL REMAIN ON YOUR INCISION FOR 7 DAYS, THEN CAN BE REMOVED. IF INCISION IS LEAKING THROUGH DRESSING, CALL THE OFFICE . FOLLOW UP VISIT: If appointment is not already scheduled: Please call [facility] to make a follow-up appointment for 2 weeks after your surgery at . MONITOR FACIAL RASH, IF GETS WORSE OF BECOMES SYMPTOMATIC CONTACT FAMILY PHYSICIAN OR GO TO ER Current Hospital Diet Patient's current hospital diet: Regular Diet Discharge Diet Recommended Diet: Regular Diet Procedures Procedures Performed: right TKA Pending Studies Studies pending at discharge: no Laboratory Results Hemoglobin A1c Test 10/02/17 15:00 Range/Units Estimated Average Glucose 111 mg/dl Hemoglobin A1c 5.5 4.5-5.6 % Medical Emergencies . Who to Call and When: Medical Emergencies: If at any time you feel your situation is an emergency, please call [phone] immediately. . Non-Emergent Contact Non-Emergency issues call your: Primary Care Provider . "Provider Documentation" section prepared by Mina Mendoza. . VTE Core Measure Inpt VTE Proph given/why not?: Other Anticoagulation (asa), T.E.D. Stockings, SCD's [place] Drug Monitoring Program Search Results: patient reviewed within database, no issues identified
[2017-10-31 07:43] LABS: HEMATOCRIT 30.1 % (37-47); HEMOGLOBIN 10.2 g/dL (12.0-16.0); MEAN CELL VOLUME 94.7 fL (80-100); MEAN CORPUSCULAR HEMOGLOBIN 32.1 pg (25-34); MEAN CORPUSCULAR HGB CONC 33.9 g/dl (32-36); MEAN PLATELET VOLUME 9.5 fL (7.4-10.4); PLATELET COUNT 199 K/uL (130-400); RED CELL DISTRIBUTION WIDTH CV 12.7 % (11.5-14.5); RED CELL DISTRIBUTION WIDTH SD 43.5 fL (36.4-46.3); WHITE BLOOD COUNT 9.17 K/uL (4.8-10.8)
[2017-10-31 08:11] LABS: CREATININE 1.58 mg/dl (0.60-1.20); POTASSIUM 4.1 mmol/L (3.5-5.1)
[2017-10-31] MEDS: DOCUSATE SODIUM 100 MG CAP PO SCH (08:36)
[2017-10-31] MEDS: PANTOprazole SOD 40 MG TAB PO SCH (08:38)
[2017-10-31] MEDS: METOPROLOL SUCC 25MG EXT REL TAB PO SCH (08:38)
[2017-10-31] MEDS: MULTIVITAMIN TAB PO SCH (08:38)
[2017-10-31] MEDS: CHOLECALCIFEROL 1000 INTER.UNIT TAB PO SCH (08:39)
[2017-10-31] MEDS ORDERED: LOSARTAN POTASSIUM 50 MG TAB PO SCH (09:00)
[2017-10-31 09:29] VITALS: BP 156/71; PULSE 62; TEMP 36.8; O2SAT 93
[2017-10-31] MEDS: ASPIRIN 81 MG ECTAB PO SCH (09:52)
== END 2017-10-31 11:55 | disposition home health service (06) | DRG 470 ==
LOC: C.ACU 08:06 → C.3E 09:33 → ENRESERV 14:11
PROVIDERS: ADMIT Orthopaedic Surgery Sports Medicine; ATTEND Orthopaedic Surgery Sports Medicine
PROC: 0SRC0J9 Replacement of Right Knee Joint with Synthetic Substitute, Cemented, Open Approach (ICD-10-PCS; principal; 2017-10-29 11:00)
DX: M17.11 Unilateral primary osteoarthritis, right knee (principal); N18.4 Chronic kidney disease, stage 4 (severe); L53.9 Erythematous condition, unspecified; I12.9 Hypertensive chronic kidney disease with stage 1 through stage 4 chronic kidney disease, or unspecified chronic kidney disease; E03.9 Hypothyroidism, unspecified; K21.9 Gastro-esophageal reflux disease without esophagitis; Z79.82 Long term (current) use of aspirin; Z79.899 Other long term (current) drug therapy

== ENCOUNTER → 2017-11-13 | Outpatient (CLI) | payer OTHER ==
[~2017-11-13] MED LIST changes: -ACETAMINOPHEN 500 MG TAB PO SCH; +ASPEC81 PO; -ASPI81TA28 PO; -BUPIVACAINE 0.5 % 5 MG/1 ML PF 10ML VIAL ONE; -DEXAMETHASONE 4 MG TAB PO SCH; -FAMOTIDINE 20 MG TAB PO SCH; -GABAPENTIN 300 MG CAP PO SCH; -METOCLOPRAMIDE HCL 10 MG TAB PO SCH; -ROPIVACAINE 5MG/ML 30 ML 150 MG, BUPIVACAINE 0.5% MPF INJ 30 ML, EpINEphrine HCL INJ 0.... INFIL SCH; -SODIUM CHLORIDE 0.9% 1000ML 1,000 ML IV SCH; +ULT50X PO; -VANCOMYCIN 1GM/270ML NSS 270 ML IV SCH; -[UNRECOGNIZED DRUG - REMARK] SCH
--- NOTE | 2017-11-13 14:00 | DIAGNOSTIC IMAGING REPORT ---
ULTRASOUND RIGHT LOWER EXTREMITY VENOUS CLINICAL HISTORY: Right leg pain and swelling. COMPARISON STUDY: No priors. TECHNIQUE: Real-time, grayscale, and color Doppler sonography of the deep veins of the right lower extremity was performed from the inguinal crease to the calf. Compression and augmentation were utilized. FINDINGS: There is no sonographic evidence of deep venous thrombosis identified in the right lower extremity. The common femoral, superficial femoral, and popliteal veins are patent and normally compressible. The greater saphenous vein and the profunda femoris vein at the junction with the common femoral vein are clear. The visualized calf veins are patent. A complex popliteal cyst measures 5.9 x 2.2 x 3.4 cm. IMPRESSION: 1. There is no sonographic evidence of deep venous thrombosis identified in the right lower extremity. 2. Complex Hobson's cyst. Electronically signed by: Prince Stephens M.D. 11/13/2017 1:59 PM Dictated Date/Time: 11/13/2017 1:59 PM
== END | disposition home or self-care (01) ==
LOC: C.ULTRBC 13:09
PROVIDERS: ATTEND Orthopaedic Surgery Sports Medicine
DX: M79.89 Other specified soft tissue disorders (principal); M71.21 Synovial cyst of popliteal space [Baker], right knee

== ENCOUNTER 2019-02-07 18:40 | Inpatient (IN) ==
[2019-02-07] MEDS ORDERED: BISACODYL 10 MG SUPP PR PRN (18:42)
[2019-02-07] MEDS ORDERED: NALOXONE HCL 0.4 MG/1 ML VIAL/CARP IV PRN (18:42)
[2019-02-07] MEDS ORDERED: ALUMINUM/MAGNESIUM SUSP 30 ML UDC PO PRN (18:42)
[2019-02-07] MEDS ORDERED: POLYETHYLENE (MIRALAX) 17 GM PACK PO PRN (18:42)
[2019-02-07] MEDS ORDERED: ONDANSETRON INJ 2 MG/ML 2 ML VIAL IV PRN (18:42)
[2019-02-07] MEDS ORDERED: MAGNESIUM HYDROXIDE SUSP 30 ML UDC PO PRN ×2 (18:42)
[2019-02-07] MEDS ORDERED: ACETAMINOPHEN 325 MG TAB PO PRN (18:52)
[2019-02-07 22:55] LABS: Basophils # (auto) 0.02 K/uL (0-0.2); Basophils % (auto) 0.2 %; Eosinophils # (auto) 0.08 K/uL (0-0.5); Eosinophils % (auto) 0.9 %; Hematocrit (blood only) 32.3 % (37-47); Hemoglobin 11.3 g/dL (12.0-16.0); Immature Granulocytes # (auto) 0.04 K/uL (0.00-0.02); Immature Granulocytes % (auto) 0.4 %; Lymphocytes # (auto) 1.25 K/uL (1.2-3.4); Lymphocytes % (auto) 13.8 %; Mean Corpuscular Volume 91.5 fL (80-100); Monocytes # (auto) 0.64 K/uL (0.11-0.59); Neutrophils # (auto) 7.06 K/uL (1.4-6.5); Neutrophils % (auto) 77.7 %; Platelet Count 326 K/uL (130-400); RDW Standard Deviation 43.4 fL (36.4-46.3); Red Blood Count 3.53 M/uL (4.2-5.4); White Blood Count 9.09 K/uL (4.8-10.8)
[2019-02-07 23:05] LABS: INR 1.1 (0.9-1.1); Partial Thromboplastin Ratio 0.8; Prothrombin Time 10.9 Seconds (9.0-12.0)
[2019-02-07 23:15] LABS: Alanine Aminotransferase 35 U/L (12-78); Albumin Level 3.3 gm/dl (3.4-5.0); Aspartate Aminotransferase 25 U/L (15-37); BUN Creatinine Ratio 17.4 (10-20); Blood Urea Nitrogen 29 mg/dl (7-18); Calcium 9.1 mg/dl (8.5-10.1); Carbon Dioxide 26 mmol/L (21-32); Chloride 104 mmol/L (98-107); Est GFR (African American) 31.8; Est GFR (Non-African American) 27.4; Glucose 105 mg/dl (70-99); Potassium 3.9 mmol/L (3.5-5.1); Sodium 136 mmol/L (136-145)
[2019-02-07 23:17] LABS: Albumin Globulin Ratio 0.9 (0.9-2); Alkaline Phosphatase 79 U/L (45-117); Bilirubin,Total 0.5 mg/dl (0.2-1); Globulin 3.6 gm/dl (2.5-4.0); Total Protein 6.9 gm/dl (6.4-8.2)
[2019-02-07] MEDS: ONDANSETRON INJ 2 MG/ML 2 ML VIAL IV PRN (23:17)
[2019-02-07] MEDS: HYDROmorphone INJ 0.5 MG/0.5 ML SYR IV PRN (23:17)
[2019-02-07] MEDS: SODIUM CHLORIDE 0.9% 1000ML 1,000 ML IV SCH (23:26)
--- NOTE | 2019-02-07 23:46 | History and Physical Report ---
DATE OF ADMISSION: 02/07/2019 CHIEF COMPLAINT: Status post fall and left hip fracture. HISTORY OF PRESENT ILLNESS: This is an 88-year-old female with past medical history significant for hyperlipidemia, acute hypothyroidism, hypertension, irritable bowel syndrome, GERD, chronic kidney disease stage IV, osteoporosis, generalized osteoarthritis, cervical spondylosis with myelopathy, allergic contact dermatitis. Had a mechanical fall today. The patient lives alone. She went to the mailbox; when she was turning, she slipped and fell. She was able to get up and she went to the bathroom and she suddenly felt something pop in her hip and she could not move, had severe pain, and went to the [facility]. There imaging studies showed left hip fracture and there was no ortho coverage in [facility], so she was transferred here. The [facility] physician talked to ortho here and was accepted and transferred. The patient has significant pain and requesting for pain medication. She says her balance is not that great recently and 1 week ago she also fell at home. Otherwise, no other complaints. Denies any headache, no dizziness, no blurred vision, no earache, no runny nose, no sore throat, no cough, no recent fever or chills, no difficulty swallowing. No chest pain, no shortness of breath, no nausea, no abdominal pain. Normal bowel and bladder movements. No blood in the stools, no hematuria. Currently resting comfortably.Patient says before this incident she can walk long distances and climb steps ok. ALLERGIES: IBUPROFEN, ALENDRONATE, AMOXICILLIN, CIPROFLOXACIN, IVP DYE, ZOCOR, METOCLOPRAMIDE, MORPHINE. PAST MEDICAL HISTORY: As mentioned above. PAST SURGICAL HISTORY: Left total knee arthroplasty, colonoscopy, EGDs, injection of the lumbar and cervical spine, knee arthroscopy, laparoscopic cholecystectomy, colon resection, appendectomy, removal of ovarian cyst, oophorectomy, total abdominal hysterectomy with removal of the tubes. MEDICATIONS: The patient is on levothyroxine 50 mcg p.o. daily, amlodipine 5 mg p.o. daily, losartan and hydrochlorothiazide 100/25 mg 1 tablet in the morning, Tylenol ER 650 mg p.o. every 8 hours p.r.n., Toprol-XL 25 mg p.o. daily, vitamin B12 1000 mcg daily, omeprazole 20 mg p.o. daily, biotin 5 mg p.o. daily, vitamin D 2000 units p.o. daily, famotidine 20 mg p.o. daily, probiotic daily, Zyrtec 10 mg p.o. daily, aspirin 81 mg p.o. daily. FAMILY HISTORY: Significant for daughter has melanoma, brother has [place], father with heart disorder. SOCIAL HISTORY: , lives alone. No smoking. Alcohol rarely. No drug use. REVIEW OF SYMPTOMS: As per HPI. Rest of the review of symptoms negative. PHYSICAL EXAMINATION: GENERAL: The patient is old and frail, not in acute distress. VITAL SIGNS: At [facility], temperature 36.5, pulse 77, blood pressure 150/54, oxygen 96%, respiratory rate 18. HEENT: No pallor, no icterus. NECK: No neck masses. Supple. CARDIOVASCULAR: S1, S2 heard, regular rate and rhythm, no murmur, no gallop. RESPIRATORY SYSTEM: Normal AP diameter. No accessory muscle use. No wheezing, no crackles. ABDOMEN: Soft, bowel sounds present. Nontender. No distention. CENTRAL NERVOUS SYSTEM: Nonfocal. EXTREMITIES: Left lower extremity is shortened and externally rotated. No erythema seen. LABORATORIES: WBC 9, hemoglobin 11.3, hematocrit 32.3, platelets 326. Chemistries done at [facility], BUN 33, creatinine 1.9. Sodium 133, potassium 4.1, chloride 97, bicarbonate 21, glucose 103, calcium 9.4. IMAGING DATA: Chest x-ray, questionable widening of superior mediastinum. CT scan of the chest, no evidence of acute pathology in the chest. X-ray of the hips showed left femoral neck fracture. EKG: As per the EPIC notes, normal sinus rhythm with no acute changes at the rate of 70. ASSESSMENT AND PLAN: This is an 88-year-old female who presents with mechanical fall and left hip fracture. 1. Mechanical fall and left femoral neck fracture. She does not have significant cardiac disease. A CT chest was fine. EKG as per the EPIC record done today in [facility] is okay, but we will repeat EKG. Ortho was notified by the [facility] ER. We will keep her n.p.o. after midnight. Pain control, gentle fluids. Consult ortho for possible surgery in a.m. If the EKG is okay, patient should be at acceptable risk to proceed with surgery. 2. Chronic kidney disease, stage IV, Baseline creatinine around 2, will follow the labs. 3. History of hypertension. Continue her home medication of Hyzaar and amlodipine and Toprol-XL. Will monitor the blood pressure. 4. History of gastroesophageal reflux disease. Continue Pepcid. 5. History of hypothyroidism. Continue Synthroid. 6. History of allergic contact dermatitis, on cetirizine. 7. Deep venous thrombosis prophylaxis. Could not place, because of fracture, no anticoagulation for possibility of surgery. Further deep venous thrombosis prophylaxis as per orthopedics. DISPOSITION: Closely monitor on the medical floor. Level 1 full code. Social service to help with discharge planning. MTDD
[2019-02-07] MEDS: DOCUSATE SODIUM/SENNA 50/8.6MG TAB PO SCH (23:51)
[2019-02-08] MEDS: ACETAMINOPHEN 65 ML IV PRN ×2 (01:37→14:40)
[2019-02-08] MEDS: HYDROmorphone INJ 0.5 MG/0.5 ML SYR IV PRN ×2 (05:15→08:27)
[2019-02-08] MEDS ORDERED: CEFAZOLIN 2000MG 2,000 MG/15 ML SYR IV SCH (06:00)
[2019-02-08 06:27] LABS: Basophils # (auto) 0.03 K/uL (0-0.2); Basophils % (auto) 0.4 %; Eosinophils # (auto) 0.13 K/uL (0-0.5); Eosinophils % (auto) 1.6 %; Hematocrit (blood only) 32.8 % (37-47); Hemoglobin 11.2 g/dL (12.0-16.0); Immature Granulocytes # (auto) 0.03 K/uL (0.00-0.02); Immature Granulocytes % (auto) 0.4 %; Lymphocytes # (auto) 1.26 K/uL (1.2-3.4); Lymphocytes % (auto) 15.2 %; Mean Corpuscular Hgb Conc 34.1 g/dL (32-36); Mean Corpuscular Volume 93.4 fL (80-100); Mean Platelet Volume 9.3 fL (7.4-10.4); Monocytes # (auto) 0.81 K/uL (0.11-0.59); Monocytes % (auto) 9.7 %; Neutrophils # (auto) 6.05 K/uL (1.4-6.5); Neutrophils % (auto) 72.7 %; Platelet Count 351 K/uL (130-400); RDW Coefficient of Variation 13.2 % (11.5-14.5); RDW Standard Deviation 45.3 fL (36.4-46.3); Red Blood Count 3.51 M/uL (4.2-5.4); White Blood Count 8.31 K/uL (4.8-10.8)
--- NOTE | 2019-02-08 06:46 | Anesthesiology Consultation ---
Date of Service February 08, 2019 Assessment & Plan Chart Review Chart Review: Acceptable Risk for Surgery and Patient NOT seen in Pre Admission Testing Consults Requested none Pt being followed by hospitalist and process machine operator. Had an episode of questionable 2nd degree heart block type I that was brief during vasovagal episode while the patient was nauseated. EKG done showed NSR with 1st degree heart block. Strip Cleaner saw the patient and felt that the patient is optimized for the procedure. ASA [id number] Proposed Anesthesia Anesthesia Type: MAC Spinal Risk / Benefits Reviewed With: PT / POA / Parent / Guardian, Accepts Plan and Informed Consent Obtained Additional Comments: Discussed with patient and her daughter the r/b of GA vs SAB. All questions and concerns were answered. Pt states that she does not have any nausea/vomiting anymore. She prefers to have SAB with light sedation. Expl ained to the patient the possibility of GA if unable to place spinal due to positioning. Pt and daughter agreed with plan, accepting risks. Consent was signed and witnessed. History Surgery Operation Date: 02/08/19 13:00 Proposed Procedures p Bipolar Hip Arthroplasty Anterior Approa(Left) - Bryan Ye, Height/Weight Height: 1.68 m Weight: 67.3 kg Allergies Allergy/AdvReac Type Severity Reaction Status Date / Time vancomycin Allergy Mild RASH Verified 10/30/17 21:17 alendronate sodium Allergy Unknown GI ISSUES Verified 10/02/17 14:09 amoxicillin Allergy Unknown RASH Verified 10/02/17 14:09 Cipro Allergy Unknown HIVES Verified 10/02/17 14:09 ibuprofen Allergy Unknown SWELLING Verified 10/02/17 14:09 Iodinated Contrast- Oral and Allergy Unknown HIVES, Verified 10/02/17 14:09 IV Dye FLUSHING, "TURNED RED" metoclopramide Allergy Unknown UNKNOWN Verified 10/02/17 14:09 RXN PER PATIENT simvastatin Allergy Unknown MUSCLE Verified 10/02/17 14:09 COMPLAINTS morphine AdvReac Unknown NAUSEA AND Verified 10/02/17 14:09 VOMITING Medications Home Medications Medication Instructions Recorded Confirmed Last Taken acetaminophen 650 mg PO Q8H PRN 02/07/19 02/07/19 Unknown amlodipine 5 mg PO DAILY 02/07/19 02/07/19 Unknown aspirin [Aspir-81] 81 mg PO DAILY 02/07/19 02/07/19 Unknown biotin 5 mg PO DAILY 02/07/19 02/07/19 Unknown cetirizine 10 mg PO DAILY 02/07/19 02/07/19 Unknown cholecalciferol (vitamin D3) 2,000 unit PO DAILY 02/07/19 02/07/19 Unknown cyanocobalamin (vitamin B-12) 1,000 mcg PO DAILY 02/07/19 02/07/19 Unknown [Vitamin B-12] famotidine 20 mg PO DAILY 02/07/19 02/07/19 Unknown lactobacillus combination no.4 3,000 mmu cells PO DAILY 02/07/19 02/07/19 Unknown [Probiotic] levothyroxine 50 mcg PO DAILY 02/07/19 02/07/19 Unknown losartan-hydrochlorothiazide 1 tab PO DAILY 02/07/19 02/07/19 Unknown metoprolol succinate 25 mg PO DAILY 02/07/19 02/07/19 Unknown omeprazole 20 mg PO DAILY 02/07/19 02/07/19 Unknown Active Medications Generic Name Dose Route Start Last Admin Trade Name Freq PRN Reason Stop Dose Admin Famotidine 20 mg 02/08/19 09:00 02/08/19 10:58 Pepcid PO 03/10/19 08:59 20 mg DAILY ISADORA Administration HCTZ/Losartan Potassium 1 tab 02/08/19 09:00 02/08/19 08:23 Hyzaar 50/12.5mg PO 03/10/19 08:59 1 tab DAILY ISADORA Administration Hydromorphone HCl 0.5 mg 02/07/19 22:59 02/08/19 08:27 Dilaudid IV 02/21/19 22:58 0.5 mg Q3H PRN Administration Pain Acetaminophen 65 mls @ 200 mls/hr 02/07/19 23:00 02/08/19 15:00 Ofirmev IV 03/09/19 22:59 Infused Q8H PRN Infusion Pain or Fever Sodium Chloride 1,000 mls @ 100 mls/hr 02/07/19 23:00 02/08/19 09:43 Nss 1000ml IV 03/09/19 22:59 100 mls/hr .Q10H ISADORA Administration Levothyroxine Sodium 50 mcg 02/08/19 06:30 02/08/19 08:21 Synthroid PO 03/10/19 06:29 50 mcg DAILYBB ISADORA Administration Metoprolol Succinate 25 mg 02/08/19 09:00 02/08/19 08:23 Toprol Xl PO 03/10/19 08:59 25 mg DAILY ISADORA Administration Ondansetron HCl 4 mg 02/07/19 18:47 02/08/19 09:41 Zofran IV 03/09/19 18:46 4 mg Q6H PRN Administration Nausea And Vomiting Senna/Docusate Sodium 2 tab 02/07/19 21:00 02/07/19 23:51 Senokot S PO 03/09/19 20:59 Not Given HS ISADORA NPO Date Last Intake of Fluids: 02/07/19 Time Last Intake of Fluids: 12:00 Last Intake of Fluids Comment: Sips of water this am with medications Date Last Intake of Solids: 02/07/19 Time Last Intake of Solids: 12:00 Past Medical History Medical History HTN (hypertension) (Chronic) HLD (hyperlipidemia) (Chronic) Osteoporosis (Chronic) Acquired hypothyroidism (Chronic) Generalized osteoarthritis (Chronic) 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) GERD (gastroesophageal reflux disease) (Chronic) CKD (chronic kidney disease) stage 4, 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) Exercise / Class Metabolic Activity II 4-5 Yardwork/Stairs/Walk up hill Past Surgical History Surgical History History of left knee replacement (Chronic) History of colonoscopy (Chronic) History of esophagogastroduodenoscopy (EGD) (Chronic) History of cholecystectomy (Chronic) History of colon resection (Chronic) History of appendectomy (Chronic) History of removal of ovarian cyst (Chronic) History of oophorectomy (Chronic) History of total abdominal hysterectomy (Chronic) Past Anesthesia History No Hx of Anesthesia Complications and No Family Hx of Anesthesia Complications History of PONV No Hx of PONV and No Hx of Motion Sickness Social History Smoking Status: Never smoker Do You Dip or Chew Tobacco: No Hx Alcohol Use: No Hx Substance Use: No Review of Systems Cardiovascular: no chest pain, no dyspnea on exertion and no orthopnea Gastrointestinal: no nausea and no vomiting (Had an episode of nausea with vomiting due to pain pill. Has since resolved) Physical Exam Vital Signs Last Vital Signs Temp 37.0 C 02/08/19 07:52 Pulse 81 02/08/19 08:00 Resp 19 02/08/19 07:52 BP 158/55 H 02/08/19 07:52 Pulse Ox 91 02/08/19 07:52 ENMT Mouth: no TMJ abnormality and no TMJ clicking Thyromental Distance: < 3.5 Finger Breadths Mallampati Class: II Neck normal visual inspection; neck extension not limited Respiratory Auscultation: lungs clear to auscultation bilaterally Cardiovascular Rate/Rhythm: regular rate and regular rhythm Psychiatric Orientation: alert and oriented x 3 Testing Laboratory Results 02/08/19 05:15 02/07/19 02/07/19 22:46 22:46 PT 10.9 INR 1.1 APTT 22.0 Blood Type A Positive Antibody Screen NEGATIVE Laboratory Tests 02/07/19 22:46 Sodium 136 Potassium 3.9 Chloride 104 Carbon Dioxide 26 BUN 29 H Creatinine 1.65 H Glucose 105 H Electrocardiogram Date: 02/08/19 Findings: + NSR @ (With 1st degree AVB @ 84 bpm)
[2019-02-08 07:01] LABS: Calcium 8.6 mg/dl (8.5-10.1); Creatinine Clr Calc Pharmacy 24.9 ml/min; Est GFR (African American) 36.9; Est GFR (Non-African American) 31.8; Magnesium 1.2 mg/dl (1.8-2.4); Potassium 3.9 mmol/L (3.5-5.1)
[2019-02-08] MEDS: LEVOTHYROXINE SODIUM 50 MCG TABLET PO SCH (08:21)
[2019-02-08] MEDS: METOPROLOL SUCC 25MG EXT REL TAB PO SCH (08:23)
[2019-02-08] MEDS: LOSARTAN/HCTZ 50/12.5MG TAB PO SCH (08:23)
[2019-02-08] MEDS: MAGNESIUM SULFATE / D5W 1 GM/100 ML BAG IV SCH ×2 (08:25→09:43)
[2019-02-08] MEDS ORDERED: NON-FORMULARY MEDICATION (Biotin 5 MG) PO SCH (09:00)
[2019-02-08] MEDS ORDERED: AMLODIPINE BESYLATE 5 MG TAB PO SCH (09:00)
--- NOTE | 2019-02-08 09:18 | Orthopedic Consultation ---
Date of Consultation February 08, 2019 Assessment & Plan (1) Left displaced femoral neck fracture: We will proceed with a left hip hemiarthroplasty to be done later this morning. She is already received preoperative medical clearance. We will watch her renal status closely. Postoperatively she will likely be placed on aspirin for DVT prophylaxis because I want to stay away from Lovenox due to her renal status. Consent was signed. Present on Admission?: Yes History of Present Illness Reason for Consultation: Left femoral neck fracture Attending Physician: Danny Fisher MD History of Present Illness Lesli is a very pleasant 88-year-old female who lives in a single floor house by herself. She is a community ambulator without assistance. Yesterday she was walking to her mailbox and she slipped and fell. She was able to get up and walk to the bathroom. When she was in the bathroom she felt a pop in her hip. She then fell to the floor. She had severe pain. She went to [place] emergency room where radiographs demonstrated a displaced left femoral neck fracture. She was then transferred to [facility] and orthopedics was consulted to evaluate and treat. Allergies Allergy/AdvReac Type Severity Reaction Status Date / Time vancomycin Allergy Mild RASH Verified 10/30/17 21:17 alendronate sodium Allergy Unknown GI ISSUES Verified 10/02/17 14:09 amoxicillin Allergy Unknown RASH Verified 10/02/17 14:09 Cipro Allergy Unknown HIVES Verified 10/02/17 14:09 ibuprofen Allergy Unknown SWELLING Verified 10/02/17 14:09 Iodinated Contrast- Oral and Allergy Unknown HIVES, Verified 10/02/17 14:09 IV Dye FLUSHING, "TURNED RED" metoclopramide Allergy Unknown UNKNOWN Verified 10/02/17 14:09 RXN PER PATIENT simvastatin Allergy Unknown MUSCLE Verified 10/02/17 14:09 COMPLAINTS morphine AdvReac Unknown NAUSEA AND Verified 10/02/17 14:09 VOMITING Home Medications Home Medications Medication Instructions Recorded Confirmed Type acetaminophen 650 mg PO Q8H PRN 02/07/19 02/07/19 History amlodipine 5 mg PO DAILY 02/07/19 02/07/19 History aspirin [Aspir-81] 81 mg PO DAILY 02/07/19 02/07/19 History biotin 5 mg PO DAILY 02/07/19 02/07/19 History cetirizine 10 mg PO DAILY 02/07/19 02/07/19 History cholecalciferol (vitamin D3) 2,000 unit PO DAILY 02/07/19 02/07/19 History cyanocobalamin (vitamin B-12) 1,000 mcg PO DAILY 02/07/19 02/07/19 History [Vitamin B-12] famotidine 20 mg PO DAILY 02/07/19 02/07/19 History lactobacillus combination no.4 3,000 mmu cells PO DAILY 02/07/19 02/07/19 History [Probiotic] levothyroxine 50 mcg PO DAILY 02/07/19 02/07/19 History losartan-hydrochlorothiazide 1 tab PO DAILY 02/07/19 02/07/19 History metoprolol succinate 25 mg PO DAILY 02/07/19 02/07/19 History omeprazole 20 mg PO DAILY 02/07/19 02/07/19 History Patient History Medical History HTN (hypertension) (Chronic) HLD (hyperlipidemia) (Chronic) Osteoporosis (Chronic) Acquired hypothyroidism (Chronic) Generalized osteoarthritis (Chronic) 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) GERD (gastroesophageal reflux disease) (Chronic) CKD (chronic kidney disease) stage 4, 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) Surgical History History of left knee replacement (Chronic) History of colonoscopy (Chronic) History of esophagogastroduodenoscopy (EGD) (Chronic) History of cholecystectomy (Chronic) History of colon resection (Chronic) History of appendectomy (Chronic) History of removal of ovarian cyst (Chronic) History of oophorectomy (Chronic) History of total abdominal hysterectomy (Chronic) Social History Preferred Language: Egyptian Communication Ability: Effective Beliefs That Will Affect Care: None Current Living Situation: Alone Other Information That Helps Us Care for You: No Feels Safe at Home: Yes Safety Concerns: Feels Safe At This Time Smoking Status: Never smoker Hx Alcohol Use: No Hx Substance Use: No Review of Systems Review of Systems: All systems reviewed & are unremarkable except as noted in HPI & below Physical Exam Musculoskeletal: On physical examination of the left hip, there is significant ecchymosis laterally. She has pain with logroll of the left leg. Her left leg is slightly shortened and externally rotated. Results & Data Vital Signs (Past 12 Hours) Vital Signs Temp Pulse Resp BP BP Pulse Ox 02/08/19 07:52 37.0 C 81 19 158/55 H 91 02/08/19 01:55 148/73 H 02/07/19 23:52 36.9 C 22 182/70 H 96 Laboratory Results H & H 02/07/19 02/08/19 Range/Units 22:46 05:15 Hgb 11.3 L 11.2 L (12.0-16.0) g/dL Hct 32.3 L 32.8 L (37-47) % Coagulation 02/07/19 Range/Units 22:46 INR 1.1 (0.9-1.1) Diagnostic Findings X-rays of the left hip and pelvis reviewed from [facility] do show a displaced left femoral neck fracture.
[2019-02-08] MEDS: ONDANSETRON INJ 2 MG/ML 2 ML VIAL IV PRN (09:41)
[2019-02-08] MEDS: SODIUM CHLORIDE 0.9% 1000ML 1,000 ML IV SCH ×2 (09:43→20:12)
[2019-02-08] MEDS ORDERED: BUPIVACAINE 0.5 % 5 MG/1 ML PF 10ML VIAL ONE (10:19)
[2019-02-08] MEDS: FAMOTIDINE 20 MG TAB PO SCH (10:58)
--- NOTE | 2019-02-08 12:22 | Hospitalist Progress Note ---
Date of Service February 08, 2019 Assessment & Plan (1) Left displaced femoral neck fracture: This is an 88-year-old female who presents with mechanical fall and left hip fracture. Mechanical fall and left femoral neck fracture -direct admission from [facility] -plans were being made for patient to have left hip surgery at [facility] on 02/08/19 -current pain control medications and antiemetics Preop risk assessments -no known history of cardiac disease -on telemetry monitoring patient has been generally in sinus -02/08/19: Patient was noted on 11:11 AM to have arrhythmia, perhaps a possible type 2 degree heart block on telemetry monitoring but this resolved rather quickly. patient did report around that time she was feeling nauseated and attributed nausea to pain medications. Has otherwise been asymptomatic. when 12 lead EKGs were completed times x 2, there was no evidence of Type 2 heart block. Throughout this entire period of time patient had no chest chest pain, no shortness of breath, no palpitations, no loss of consciousness. Have discussed with Dr. Carcamo of cardiology service and he comments that it is unlikely that the brief EKG changes will change the need for ultimately the patient to getting hip surgery. He will complete the full cardiology evaluation later today. Have explained to patient and patient's daughter [phone] about current findings Hypertension -on amlodipine and Toprol-XL and losartan/HCTZ Chronic kidney disease, stage IV creatinine is 1.46 on 02/08/19 which is at baseline History of gastroesophageal reflux disease -Continue Pepcid. History of hypothyroidism -Continue Synthroid. History of allergic contact dermatitis -on cetirizine. Full Code patient's daughter [phone] Subjective Patient was noted on 11:11 AM to have arrhythmia, perhaps a possible type 2 degree heart block on telemetry monitoring but this resolved rather quickly. patient did report around that time she was feeling nauseated and attributed nausea to pain medications. Has otherwise been asymptomatic. when 12 lead EKGs were completed times x 2, there was no evidence of Type 2 heart block. Throughout this entire period of time patient bravo dno chest chest pain, no shortness of breath, no palpitations, no loss of consciousness. Have discussed with Dr. Carcamo of cardiology service and he comments that it is unlikely that the brief EKG changes will change the need for ultimately the patient to getting hip surgery. He will complete the full cardiology evaluation later today. Have explained to patient and patient's daughter [phone] about current findings. Physical Exam Constitutional: WD/WN, vitals as above Eyes: PERRL, conjunctivae normal, anicteric sclerae EOM intact bilaterally ENMT: external ear and nose normal, oropharynx normal Respiratory: normal respiratory effort, lungs clear to auscultation Cardiovascular: RRR, no murmur, no edema Gastrointestinal (Abdomen): normal bowel sounds, soft, nontender, no hepatosplenomegaly Musculoskeletal: Head/Neck/Chest: normocephalic and head atraumatic left hip with some pain, able to move the toes of both lower legs Neurologic: PERRL, EOMI, accommodation nl, no face palsy, no dysarthria Psychiatric: A+Ox3, euthymic affect Results & Data Vital Signs (Past 12 Hours) Vital Signs Temp Pulse Resp BP BP Pulse Ox 02/08/19 07:52 37.0 C 81 19 158/55 H 91 02/08/19 01:55 148/73 H
--- NOTE | 2019-02-08 13:10 | Cardiology Consultation ---
Date of Consultation February 08, 2019 Assessment & Plan (1) Left displaced femoral neck fracture: (2) Wenckebach: I reviewed the telemetry strips from this morning. At that particular moment the patient was having nausea and vomiting which resulted in a vasovagal event. Reviewing the strips actually reveal episodes of wenkebach which is consistent with the history of vomiting. I do not believe any additional testing or treatment is indicated at this time. (3) Vasovagal episode: (4) HTN (hypertension): (5) Preop cardiovascular exam: By the geriatric modified Zhao criteria this patient has a 1.5% risk of a cardiovascular event with her surgery. Given her age, there is always some increased risk but I believe she should proceed. No additional cardiac testing will change that risk assessment. She is currently optimally medically managed. History of Present Illness Attending Physician: Danny Fisher MD History of Present Illness This is an 88-year-old female who went to get her mail and on the way back fell in her driveway. This is most likely a mechanical fall. She did not lose consciousness. She now has a left femoral neck fracture which will require surgical repair. This patient had evaluation by Dr. Bartlett at the [facility] cardiology group last year. He did a preoperative risk assessment for the patient to have a total knee replacement. She went on to have that surgery without sequela and has done well until this recent event. She has minimal past medical history for her age. She has no previous history of significant heart disease. She has no history of diabetes. She is treated for hypertension and does have some renal insufficiency. No recent symptoms of syncope or pre syncope. No dizziness or lightheadedness. No chest pain or shortness of breath. Allergies Allergy/AdvReac Type Severity Reaction Status Date / Time vancomycin Allergy Mild RASH Verified 10/30/17 21:17 alendronate sodium Allergy Unknown GI ISSUES Verified 10/02/17 14:09 amoxicillin Allergy Unknown RASH Verified 10/02/17 14:09 Cipro Allergy Unknown HIVES Verified 10/02/17 14:09 ibuprofen Allergy Unknown SWELLING Verified 10/02/17 14:09 Iodinated Contrast- Oral and Allergy Unknown HIVES, Verified 10/02/17 14:09 IV Dye FLUSHING, "TURNED RED" metoclopramide Allergy Unknown UNKNOWN Verified 10/02/17 14:09 RXN PER PATIENT simvastatin Allergy Unknown MUSCLE Verified 10/02/17 14:09 COMPLAINTS morphine AdvReac Unknown NAUSEA AND Verified 10/02/17 14:09 VOMITING Home Medications Home Medications Medication Instructions Recorded Confirmed Type acetaminophen 650 mg PO Q8H PRN 02/07/19 02/07/19 History amlodipine 5 mg PO DAILY 02/07/19 02/07/19 History aspirin [Aspir-81] 81 mg PO DAILY 02/07/19 02/07/19 History biotin 5 mg PO DAILY 02/07/19 02/07/19 History cetirizine 10 mg PO DAILY 02/07/19 02/07/19 History cholecalciferol (vitamin D3) 2,000 unit PO DAILY 02/07/19 02/07/19 History cyanocobalamin (vitamin B-12) 1,000 mcg PO DAILY 02/07/19 02/07/19 History [Vitamin B-12] famotidine 20 mg PO DAILY 02/07/19 02/07/19 History lactobacillus combination no.4 3,000 mmu cells PO DAILY 02/07/19 02/07/19 History [Probiotic] levothyroxine 50 mcg PO DAILY 02/07/19 02/07/19 History losartan-hydrochlorothiazide 1 tab PO DAILY 02/07/19 02/07/19 History metoprolol succinate 25 mg PO DAILY 02/07/19 02/07/19 History omeprazole 20 mg PO DAILY 02/07/19 02/07/19 History Patient History Medical History HTN (hypertension) (Chronic) HLD (hyperlipidemia) (Chronic) Osteoporosis (Chronic) Acquired hypothyroidism (Chronic) Generalized osteoarthritis (Chronic) 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) GERD (gastroesophageal reflux disease) (Chronic) CKD (chronic kidney disease) stage 4, 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) Surgical History History of left knee replacement (Chronic) History of colonoscopy (Chronic) History of esophagogastroduodenoscopy (EGD) (Chronic) History of cholecystectomy (Chronic) History of colon resection (Chronic) History of appendectomy (Chronic) History of removal of ovarian cyst (Chronic) History of oophorectomy (Chronic) History of total abdominal hysterectomy (Chronic) Social History Preferred Language: Nepali Communication Ability: Effective Beliefs That Will Affect Care: None Current Living Situation: Alone Other Information That Helps Us Care for You: No Feels Safe at Home: Yes Safety Concerns: Feels Safe At This Time Smoking Status: Never smoker Hx Alcohol Use: No Hx Substance Use: No Review of Systems Review of Systems: All systems reviewed & are unremarkable except as noted in HPI & below Nothing additional Physical Exam Physical Exam: General: no acute distress and stated age Head: normocephalic, no masses, lesions, tenderness or abnormalities Eyes: conjunctiva are pink and non-injected, sclera clear Neck: supple, no adenopathy, no bruits, normal jugular venous pulse, no hepatojugular reflux Chest: normal shape and normal respiratory effort Lungs: clear to auscultation and percussion Cardiac Exam: - regular rate & rhythm, no murmurs gallops or rubs - normal S1, normal S2 Pulses: 2(+) throughout Abdomen: abdomen soft, non-tender, no abnormal masses and no hepatosplenomegaly Musculoskeletal: no gait disturbance, no joint inflammation, no deforming arthritis Extremities: no edema and no cyanosis Neuro: grossly normal exam Results & Data Vital Signs (Past 12 Hours) Vital Signs Temp Pulse Pulse Resp BP BP Pulse Ox 02/08/19 08:00 81 02/08/19 07:52 37.0 C 81 19 158/55 H 91 02/08/19 01:55 148/73 H Laboratory Results Laboratory Results - last 24 hr 02/07/19 02/07/19 02/07/19 22:46 22:46 22:46 WBC RBC Hgb Hct MCV MCH MCHC RDW Std Deviation RDW Coeff of Gaby Plt Count MPV Immature Gran % (Auto) Neut % (Auto) Lymph % (Auto) [place] % (Auto) Eos % (Auto) Baso % (Auto) Immature Gran # (Auto) Neut # (Auto) Lymph # (Auto) [place] # (Auto) Eos # (Auto) Baso # (Auto) PT 10.9 INR 1.1 APTT 22.0 PTT Ratio 0.8 Sodium 136 Potassium 3.9 Chloride 104 Carbon Dioxide 26 Anion Gap 6.0 BUN 29 H Creatinine 1.65 H Est Cr Clr Drug Dosing Not Reportable Est GFR ( Amer) 31.8 Est GFR (Non-Af Amer) 27.4 BUN/Creatinine Ratio 17.4 Glucose 105 H Calcium 9.1 Magnesium Total Bilirubin 0.5 AST 25 ALT 35 Alkaline Phosphatase 79 Total Protein 6.9 Albumin 3.3 L Globulin 3.6 Albumin/Globulin Ratio 0.9 Nasal Screen MRSA (PCR) Blood Type A Positive Antibody Screen NEGATIVE 02/07/19 02/08/19 02/08/19 22:46 05:15 05:15 WBC 9.09 8.31 RBC 3.53 L 3.51 L Hgb 11.3 L 11.2 L Hct 32.3 L 32.8 L MCV 91.5 93.4 MCH 32.0 31.9 MCHC 35.0 34.1 RDW Std Deviation 43.4 45.3 RDW Coeff of Gaby 13.0 13.2 Plt Count 326 351 MPV 9.0 9.3 Immature Gran % (Auto) 0.4 0.4 Neut % (Auto) 77.7 72.7 Lymph % (Auto) 13.8 15.2 [place] % (Auto) 7.0 9.7 Eos % (Auto) 0.9 1.6 Baso % (Auto) 0.2 0.4 Immature Gran # (Auto) 0.04 H 0.03 H Neut # (Auto) 7.06 H 6.05 Lymph # (Auto) 1.25 1.26 [place] # (Auto) 0.64 H 0.81 H Eos # (Auto) 0.08 0.13 Baso # (Auto) 0.02 0.03 PT INR APTT PTT Ratio Sodium 136 Potassium 3.9 Chloride 105 Carbon Dioxide 24 Anion Gap 7.0 BUN 25 H Creatinine 1.46 H Est Cr Clr Drug Dosing 24.9 Est GFR ( Amer) 36.9 Est GFR (Non-Af Amer) 31.8 BUN/Creatinine Ratio 17.0 Glucose 100 H Calcium 8.6 Magnesium 1.2 L Total Bilirubin AST ALT Alkaline Phosphatase Total Protein Albumin Globulin Albumin/Globulin Ratio Nasal Screen MRSA (PCR) Blood Type Antibody Screen 02/08/19 08:35 WBC RBC Hgb Hct MCV MCH MCHC RDW Std Deviation RDW Coeff of Gaby Plt Count MPV Immature Gran % (Auto) Neut % (Auto) Lymph % (Auto) [place] % (Auto) Eos % (Auto) Baso % (Auto) Immature Gran # (Auto) Neut # (Auto) Lymph # (Auto) [place] # (Auto) Eos # (Auto) Baso # (Auto) PT INR APTT PTT Ratio Sodium Potassium Chloride Carbon Dioxide Anion Gap BUN Creatinine Est Cr Clr Drug Dosing Est GFR ( Amer) Est GFR (Non-Af Amer) BUN/Creatinine Ratio Glucose Calcium Magnesium Total Bilirubin AST ALT Alkaline Phosphatase Total Protein Albumin Globulin Albumin/Globulin Ratio Nasal Screen MRSA (PCR) Negative Blood Type Antibody Screen Medications Administered Current Inpatient Medications Acetaminophen (Tylenol) 650 mg PO Q4H PRN PRN Reason: Pain SCALE 1,2,3 or Fever Stop: 03/09/19 18:41 Amlodipine Besylate (Norvasc) 5 mg PO DAILY [facility] Stop: 03/10/19 08:59 Bisacodyl (Dulcolax) 10 mg ID DAILY PRN PRN Reason: Constipation Stop: 03/09/19 18:41 Cetirizine HCl (Zyrtec) 10 mg PO DAILY [facility] Stop: 03/10/19 08:59 Cyanocobalamin (Vitamin B-12) 1,000 mcg PO DAILY [facility] Stop: 03/10/19 08:59 Famotidine (Pepcid) 20 mg PO DAILY [facility] Stop: 03/10/19 08:59 Last Admin: 02/08/19 10:58 Dose: 20 mg Documented by: HCTZ/Losartan Potassium (Hyzaar 50/12.5mg) 1 tab PO DAILY [facility] Stop: 03/10/19 08:59 Last Admin: 02/08/19 08:23 Dose: 1 tab Documented by: Hydromorphone HCl (Dilaudid) 0.5 mg IV Q3H PRN PRN Reason: Pain Stop: 02/21/19 22:58 Last Admin: 02/08/19 08:27 Dose: 0.5 mg Documented by: Cefazolin Sodium (Ancef 2000mg) 2,000 mg in 15 mls @ 3.75 mls/min IV PREOP ISADORA; Protocol Stop: 02/08/19 18:00 Acetaminophen (Ofirmev) 65 mls @ 200 mls/hr IV Q8H PRN PRN Reason: Pain or Fever Stop: 03/09/19 22:59 Last Infusion: 02/08/19 02:00 Dose: Infused Documented by: Sodium Chloride (Nss 1000ml) 1,000 mls @ 100 mls/hr IV .Q10H [facility] Stop: 03/09/19 22:59 Last Admin: 02/08/19 09:43 Dose: 100 mls/hr Documented by: Lactobacillus Acidophilus (Floranex) 1 tab PO DAILY [facility] Stop: 03/10/19 08:59 Levothyroxine Sodium (Synthroid) 50 mcg PO DAILYBB [facility] Stop: 03/10/19 06:29 Last Admin: 02/08/19 08:21 Dose: 50 mcg Documented by: Magnesium Hydroxide (Milk Of Magnesia) 30 ml PO Q12H PRN PRN Reason: Constipation Stop: 03/09/19 18:41 Metoprolol Succinate (Toprol Xl) 25 mg PO DAILY [facility] Stop: 03/10/19 08:59 Last Admin: 02/08/19 08:23 Dose: 25 mg Documented by: Naloxone HCl (Narcan) 0.1 mg IV UD PRN PRN Reason: Opiate Overdose Stop: 03/09/19 18:41 Ondansetron HCl (Zofran) 4 mg IV Q6H PRN PRN Reason: Nausea And Vomiting Stop: 03/09/19 18:46 Last Admin: 02/08/19 09:41 Dose: 4 mg Documented by: Oxycodone HCl (Roxicodone Immediate Rel) 5 mg PO Q4H PRN PRN Reason: MODERATE Pain (Scale 4,5,6) Stop: 02/21/19 18:46 Pantoprazole Sodium (Protonix) 40 mg PO DAILY [facility] Stop: 03/10/19 08:59 Polyethylene Glycol (Miralax Powder Packet) 17 gm PO DAILY PRN PRN Reason: Constipation Stop: 03/09/19 18:41 Senna/Docusate Sodium (Senokot S) 2 tab PO HS [facility] Stop: 03/09/19 20:59 Last Admin: 02/07/19 23:51 Dose: Not Given Documented by: Vitamin D (Vitamin D3) 2,000 units PO DAILY [facility] Stop: 03/10/19 08:59
[2019-02-08] MEDS ORDERED: fentaNYL citrate 100 MCG/2 ML VIAL ONE (14:43)
[2019-02-08] MEDS ORDERED: PROPOFOL IV EMULSION 10 MG/ML 20 ML VIAL IV ONE (14:45)
[2019-02-08] MEDS ORDERED: KETAMINE HCL INJ 50 MG/ML 10 ML VIAL ONE (14:46)
[2019-02-08] MEDS ORDERED: ATROPINE SULFATE 0.1 MG/ML 10ML SYR IV PRN (14:57)
[2019-02-08] MEDS ORDERED: fentaNYL citrate 100 MCG/2 ML VIAL IV PRN (14:57)
[2019-02-08] MEDS ORDERED: ONDANSETRON INJ 2 MG/ML 2 ML VIAL IV PRN (14:57)
[2019-02-08] MEDS ORDERED: PHENYLEPHRINE 100MCG/ML 5ML SYR IV PRN (14:57)
[2019-02-08] MEDS ORDERED: ePHEDrine sulfate 50 MG/ML AMP IV PRN (14:57)
--- NOTE | 2019-02-08 15:11 | History & Physical Bridge Note ---
Date of Service February 08, 2019 History & Physical Bridge Note I have examined the patient, reviewed the History & Physical and in the interval since the performance of the History & Physical I have noted the following changes of clinical significance: no changes noted
[2019-02-08] MEDS ORDERED: Nursing to Pharmacy Communication ONE (15:17)
[2019-02-08] MEDS ORDERED: SODIUM CHLORIDE 0.9% INJ 10 ML VIAL ONE (16:04)
[2019-02-08] MEDS ORDERED: CEFAZOLIN 250 MG/ML 1 GM VIAL ONE (16:08)
[2019-02-08] MEDS ORDERED: POVIDONE-IODINE OP SOLN 30 ML BTL ONE (16:29)
--- NOTE | 2019-02-08 18:02 | Operative Report ---
Post Operative Report Pre & Post Diagnosis Operation Date: 02/08/19 13:00 Pre-Op Diagnosis: Left femoral neck fracture Post-Op Diagnosis: same as preop Procedure Operation Date: 02/08/19 13:00 Actual Procedures p Bipolar Hip Arthroplasty Anterior Approach(Left) - Bryan Ye DO Surgeon Bryan Ye DO Synoptic Meteorologist None Estimated Blood Loss 250 Findings Consistent with Post-Op Diagnosis Specimens Left femoral head Complications none Disposition Disposition: Recovery Room Indications Lesli is a pleasant 88-year-old female who fell yesterday onto her left hip. She sustained a left femoral neck fracture. She was admitted to [facility] and orthopedics was consulted to evaluate and treat. After discussions with her and her daughter at bedside, they elected to proceed with a left hip hemiarthroplasty. Description of Procedure Implants used: I used a Alan LDFX cemented stem size 11 with a 47 mm bipolar cup with a 28 mm head and +3.5 neck On February 08, 2019 Lesli was brought down from her hospital room to the preoperative holding area. The operative extremity was identified and signed. She was given a preoperative antibiotic and a spinal anesthetic. She was taken back to the operating room and laid on the table in supine position. She was given basic sedation. The left leg was brought out to a Purist leg positioner. The left hip was then prepped and draped in sterile fashion. A timeout was done. The patient and the operative extremity was properly identified. An anterior approach was used. Dissection was taken down through the fascia and the tensor was retracted laterally and the rectus was retracted medially. The capsule was then incised and tagged for later repair. The femoral neck was then resected and removed and the femoral head was removed. The acetabulum was then exposed. Time was spent doing a complete circumferential labral release. Several different head trials were used and a size 47 seem to be the best fit. The femoral neck was then exposed. Sequential broaching up to a size 11 broach was done. A 47 mm bipolar cup with a +3.5 neck was then impacted into place. The hip was then reduced. Fluoroscopic images showed anatomic reduction of the hip. The hip was then dislocated. The broach was removed and an 11 stem was then cemented in place with Palacos G cement. Once cement had hardened a 47 mm bipolar cup with a 28 mm head and a +3.5 neck was then impacted onto the femoral stem. The hip was then reduced. Final fluoroscopic images showed anatomic alignment. The wound was then irrigated. The capsule was closed with #1 Vicryl suture. The wound was then lavaged with Betadine solution that was left in place for 3 minutes. The fascia was then closed with #1 PDS. Deep tissue was closed with 2-0 Vicryl skin was closed with 3-0 Vicryl and penny. A Chelsie VAC dressing was placed. She was then transferred to a hospital bed and taken to the postanesthesia care unit in stable condition. She tolerated the procedure well. I attest to the content of the Intraoperative Record and any orders documented therein. Any exceptions are noted below.
--- NOTE | 2019-02-08 18:46 | Anesthesiology Progress Note ---
Date of Service February 08, 2019 Anesthesia Post Procedure Vital Signs Vital Signs: Temp Pulse Pulse Resp BP BP Pulse Ox 02/08/19 18:32 76 20 175/75 H 96 02/08/19 18:20 77 20 162/55 H 97 02/08/19 18:10 79 20 171/95 H 100 02/08/19 18:00 84 20 148/54 H 100 02/08/19 17:52 36.6 C 83 20 161/58 H 97 02/08/19 14:30 84 02/08/19 08:00 81 02/08/19 07:52 37.0 C 81 19 158/55 H 91 02/08/19 01:55 148/73 H 02/07/19 23:52 36.9 C 22 182/70 H 96 Pain Intensity Left Hip: Pain Intensity: 8 Transfer of Care Handoff Completed per policy Notes Mental Status: alert / awake / arousable Patient Amnestic to Procedure: Yes Nausea / Vomiting: adequately controlled Pain: adequately controlled Airway Patency, RR, SpO2: stable & adequate BP & HR: stable & adequate Neuraxial Anesthesia: was administered and sensory block is resolving Anesthetic Complications: no major complications apparent Notes: Awake, doing well, no complaints. VSS
--- NOTE | 2019-02-08 19:01 | XRay Report ---
XR hip LT min 2V CLINICAL HISTORY: Post-Operative implant position COMPARISON: None. DISCUSSION: There are postsurgical changes of a bipolar left hip arthroplasty. There is no dislocatio n. The femoral component appears well seated. There is air within soft tissues consistent with recent surgery. There are overlying skin penny. IMPRESSION: Postsurgical changes of a bipolar left hip arthroplasty. No evidence of dislocation. Electronically signed by: Pio Pollock M.D. 02/08/2019 6:59 PM
[2019-02-08] MEDS: PANTOprazole 40 MG TAB PO SCH (19:39)
[2019-02-08] MEDS: LACTOBACILLUS ACIDOPHILUS (FLORANEX) TAB PO SCH (19:39)
[2019-02-08] MEDS: CETIRIZINE HCL 10 MG TABLET PO SCH (19:40)
[2019-02-08] MEDS: CHOLECALCIFEROL 1,000 UNITS TAB PO SCH (19:40)
[2019-02-08] MEDS: CYANOCOBALAMIN 500 MCG TABLET (VITAMIN B-12) PO SCH (19:40)
[2019-02-08] MEDS: AMLODIPINE BESYLATE 5 MG TAB PO SCH (20:16)
[2019-02-08] MEDS: ASPIRIN 81 MG ECTAB PO SCH (20:19)
[2019-02-08] MEDS: DOCUSATE SODIUM/SENNA 50/8.6MG TAB PO SCH (20:21)
[2019-02-08] MEDS: CEFAZOLIN 2000MG 2,000 MG/15 ML SYR IV SCH (23:11)
[2019-02-09] MEDS: SODIUM CHLORIDE 0.9% 1000ML 1,000 ML IV SCH (04:47)
[2019-02-09] MEDS: HYDROmorphone INJ 0.5 MG/0.5 ML SYR IV PRN (04:47)
[2019-02-09] MEDS: LEVOTHYROXINE SODIUM 50 MCG TABLET PO SCH (04:47)
[2019-02-09] MEDS: ACETAMINOPHEN 325 MG TAB PO PRN ×2 (05:02→13:24)
[2019-02-09 06:35] LABS: Basophils # (auto) 0.03 K/uL (0-0.2); Basophils % (auto) 0.3 %; Eosinophils # (auto) 0.13 K/uL (0-0.5); Eosinophils % (auto) 1.5 %; Hematocrit (blood only) 28.3 % (37-47); Hemoglobin 9.4 g/dL (12.0-16.0); Immature Granulocytes # (auto) 0.02 K/uL (0.00-0.02); Immature Granulocytes % (auto) 0.2 %; Lymphocytes # (auto) 0.71 K/uL (1.2-3.4); Lymphocytes % (auto) 8.1 %; Mean Corpuscular Hgb Conc 33.2 g/dL (32-36); Mean Corpuscular Volume 94.6 fL (80-100); Mean Platelet Volume 8.7 fL (7.4-10.4); Monocytes # (auto) 0.67 K/uL (0.11-0.59); Monocytes % (auto) 7.6 %; Neutrophils # (auto) 7.22 K/uL (1.4-6.5); Neutrophils % (auto) 82.3 %; Platelet Count 261 K/uL (130-400); RDW Standard Deviation 45.4 fL (36.4-46.3); Red Blood Count 2.99 M/uL (4.2-5.4); White Blood Count 8.78 K/uL (4.8-10.8)
[2019-02-09 07:05] LABS: BUN Creatinine Ratio 13.9 (10-20); Calcium 7.8 mg/dl (8.5-10.1); Creatinine Clr Calc Pharmacy 30.8 ml/min; Est GFR (African American) 47.7; Est GFR (Non-African American) 41.1; Potassium 3.6 mmol/L (3.5-5.1)
[2019-02-09] MEDS: CEFAZOLIN 2000MG 2,000 MG/15 ML SYR IV SCH (07:51)
[2019-02-09] MEDS: LACTOBACILLUS ACIDOPHILUS (FLORANEX) TAB PO SCH (07:58)
[2019-02-09] MEDS: PANTOprazole 40 MG TAB PO SCH (08:01)
[2019-02-09] MEDS: LOSARTAN/HCTZ 50/12.5MG TAB PO SCH (08:01)
[2019-02-09] MEDS: FAMOTIDINE 20 MG TAB PO SCH (08:01)
[2019-02-09] MEDS: METOPROLOL SUCC 25MG EXT REL TAB PO SCH (08:01)
[2019-02-09] MEDS: CYANOCOBALAMIN 500 MCG TABLET (VITAMIN B-12) PO SCH (08:02)
[2019-02-09] MEDS: CHOLECALCIFEROL 1,000 UNITS TAB PO SCH (08:02)
--- NOTE | 2019-02-09 08:10 | Orthopedic Progress Note ---
Date of Service February 09, 2019 Assessment & Plan (1) Left displaced femoral neck fracture: Overall she is doing fairly well. She has not been ambulating at all yet. She will be seen by physical therapy today for transfer to a chair and hopefully some ambulation. I want her on aspirin 81 mg twice a day for 6 weeks. As long as she is up and moving this should be adequate. She also has stage IV kidney disease so I am holding off on Lovenox for that reason. She is orthopedically stable for discharge when medically ready. The Chelsie VAC dressing will stay on for about 7 days. She can follow-up in our office in 2 to 3 weeks for staple removal. Our office phone number is [phone]. If you have any questions concerning her care please feel free to contact me personally on my cell phone at [phone]. Orthopedic instructions have been listed in the discharge report. Present on Admission?: Yes Subjective Lesli was seen and examined at bedside this morning. Overall she is doing very well. She is awake and alert and has no pain in her left hip. She is happy with her progress to this point. She has no complaints. Physical Exam Musculoskeletal: On physical examination of her left hip, the Chelsie VAC dressings to suction. Her leg lengths are equal. She has active dorsiflexion and plantarflexion of her left ankle. Sensations intact. Results & Data Vital Signs (Past 12 Hours) Vital Signs Temp Pulse Pulse Resp BP BP Pulse Ox 02/09/19 04:00 37.6 C H 89 20 160/74 H 91 02/09/19 00:48 72 02/08/19 23:30 36.8 C 84 20 156/65 H 96 02/08/19 22:29 36.8 C 79 20 174/50 H 96 02/08/19 21:32 36.2 C L 70 20 161/70 H 91 Laboratory Results H & H 02/07/19 02/08/19 02/09/19 Range/Units 22:46 05:15 06:11 Hgb 11.3 L 11.2 L 9.4 L (12.0-16.0) g/dL Hct 32.3 L 32.8 L 28.3 L (37-47) % Coagulation 02/07/19 Range/Units 22:46 INR 1.1 (0.9-1.1) Diagnostic Findings Postoperative x-rays of the left hip show the prosthesis to be in anatomic alignment without any evidence of fracture, dislocation, or loosening.
--- NOTE | 2019-02-09 09:40 | Fluoroscopy Report ---
INTRAOPERATIVE RADIOGRAPHS CLINICAL HISTORY: Left hip arthroplasty procedure. Fluoroscopy time: 24 seconds. FINDINGS: 7 spot fluoroscopic views of the left femur and pelvis are presented. Initial images show a mildly distracted subcapital fracture of the left femur. Subsequent images show a left hip arthropla sty being placed. The final images show the arthroplasty in near anatomic alignment. IMPRESSION: Intraoperative images from a left hip arthroplasty procedure as above. Electronically signed by: Prince Stephens M.D. 02/09/2019 9:38 AM
[2019-02-09] MEDS: ASPIRIN 81 MG ECTAB PO SCH ×2 (09:49→21:27)
--- NOTE | 2019-02-09 10:00 | Cardiology Progress Note ---
Date of Service February 09, 2019 Assessment & Plan (1) Left displaced femoral neck fracture: (2) Wenckebach: I reviewed the telemetry strips from this morning. At that particular moment the patient was having nausea and vomiting which resulted in a vasovagal event. Reviewing the strips actually reveal episodes of wenkebach which is consistent with the history of vomiting. I do not believe any additional testing or treatment is indicated at this time. (3) Vasovagal episode: (4) HTN (hypertension): (5) Preop cardiovascular exam: From a cardiac standpoint the patient is stable. She is eating and taking oral fluids. I do not believe that she needs IV fluids. She can also be transferred to the orthopedic floor. Subjective The patient had a successful surgery. No complications. She is resting comfortably. Review of Systems Review of Systems: All systems reviewed & are unremarkable except as noted in HPI & below No additional Physical Exam Physical Exam: General: no acute distress and stated age Head: normocephalic, no masses, lesions, tenderness or abnormalities Eyes: conjunctiva are pink and non-injected, sclera clear Neck: supple, no adenopathy, no bruits, normal jugular venous pulse, no hepatojugular reflux Chest: normal shape and normal respiratory effort Lungs: clear to auscultation and percussion Cardiac Exam: - regular rate & rhythm, no murmurs gallops or rubs - normal S1, normal S2 Pulses: 2(+) throughout Abdomen: abdomen soft, non-tender, no abnormal masses and no hepatosplenomegaly Musculoskeletal: no gait disturbance, no joint inflammation, no deforming arthritis Extremities: no edema and no cyanosis Neuro: grossly normal exam Results & Data Vital Signs (Past 12 Hours) Vital Signs Temp Pulse Pulse Resp BP Pulse Ox 02/09/19 08:41 37.1 C 94 H 20 130/70 94 02/09/19 04:00 37.6 C H 89 20 160/74 H 91 02/09/19 00:48 72 02/08/19 23:30 36.8 C 84 20 156/65 H 96 02/08/19 22:29 36.8 C 79 20 174/50 H 96 Laboratory Results Laboratory Results - last 24 hr 02/08/19 02/09/19 02/09/19 08:35 06:11 06:11 WBC 8.78 RBC 2.99 L Hgb 9.4 L Hct 28.3 L MCV 94.6 MCH 31.4 MCHC 33.2 RDW Std Deviation 45.4 RDW Coeff of Gaby 13.0 Plt Count 261 MPV 8.7 Immature Gran % (Auto) 0.2 Neut % (Auto) 82.3 Lymph % (Auto) 8.1 Merrick % (Auto) 7.6 Eos % (Auto) 1.5 Baso % (Auto) 0.3 Immature Gran # (Auto) 0.02 Neut # (Auto) 7.22 H Lymph # (Auto) 0.71 L Merrick # (Auto) 0.67 H Eos # (Auto) 0.13 Baso # (Auto) 0.03 Sodium 136 Potassium 3.6 Chloride 106 Carbon Dioxide 26 Anion Gap 4.0 BUN 16 Creatinine 1.18 Est Cr Clr Drug Dosing 30.8 Est GFR ( Amer) 47.7 Est GFR (Non-Af Amer) 41.1 BUN/Creatinine Ratio 13.9 Glucose 102 H Calcium 7.8 L Magnesium Nasal Screen MRSA (PCR) Negative 02/09/19 06:11 WBC RBC Hgb Hct MCV MCH MCHC RDW Std Deviation RDW Coeff of Gaby Plt Count MPV Immature Gran % (Auto) Neut % (Auto) Lymph % (Auto) Merrick % (Auto) Eos % (Auto) Baso % (Auto) Immature Gran # (Auto) Neut # (Auto) Lymph # (Auto) Merrick # (Auto) Eos # (Auto) Baso # (Auto) Sodium Potassium Chloride Carbon Dioxide Anion Gap BUN Creatinine Est Cr Clr Drug Dosing Est GFR ( Amer) Est GFR (Non-Af Amer) BUN/Creatinine Ratio Glucose Calcium Magnesium 1.5 L Nasal Screen MRSA (PCR) Medications Administered Current Inpatient Medications Acetaminophen (Tylenol) 650 mg PO Q4H PRN PRN Reason: Pain SCALE 1,2,3 or Fever Stop: 03/09/19 18:41 Last Admin: 02/09/19 05:02 Dose: 650 mg Documented by: Amlodipine Besylate (Norvasc) 5 mg PO [facility] Stop: 03/10/19 20:59 Last Admin: 02/08/19 20:16 Dose: 5 mg Documented by: Aspirin (Ecotrin Ectab) 81 mg PO BID [facility] Stop: 03/10/19 20:59 Last Admin: 02/09/19 09:49 Dose: 81 mg Documented by: Bisacodyl (Dulcolax) 10 mg [facility] DAILY PRN PRN Reason: Constipation Stop: 03/09/19 18:41 Cetirizine HCl (Zyrtec) 10 mg PO DAILY [facility] Stop: 03/10/19 08:59 Last Admin: 02/08/19 19:40 Dose: Not Given Documented by: Cyanocobalamin (Vitamin B-12) 1,000 mcg PO DAILY [facility] Stop: 03/10/19 08:59 Last Admin: 02/09/19 08:02 Dose: 500 mcg Documented by: Famotidine (Pepcid) 20 mg PO DAILY [facility] Stop: 03/10/19 08:59 Last Admin: 02/09/19 08:01 Dose: Not Given Documented by: HCTZ/Losartan Potassium (Hyzaar 50/12.5mg) 1 tab PO DAILY [facility] Stop: 03/10/19 08:59 Last Admin: 02/09/19 08:01 Dose: 1 tab Documented by: Hydromorphone HCl (Dilaudid) 0.5 mg IV Q3H PRN PRN Reason: Pain Stop: 02/21/19 22:58 Last Admin: 02/09/19 04:47 Dose: 0.5 mg Documented by: Acetaminophen (Ofirmev) 65 mls @ 200 mls/hr IV Q8H PRN PRN Reason: Pain or Fever Stop: 03/09/19 22:59 Last Infusion: 02/08/19 15:00 Dose: Infused Documented by: Lactobacillus Acidophilus (Floranex) 1 tab PO DAILY [facility] Stop: 03/10/19 08:59 Last Admin: 02/09/19 07:58 Dose: 1 tab Documented by: Levothyroxine Sodium (Synthroid) 50 mcg PO DAILYBB [facility] Stop: 03/10/19 06:29 Last Admin: 02/09/19 04:47 Dose: 50 mcg Documented by: Magnesium Hydroxide (Milk Of Magnesia) 30 ml PO Q12H PRN PRN Reason: Constipation Stop: 03/09/19 18:41 Metoprolol Succinate (Toprol Xl) 25 mg PO DAILY [facility] Stop: 03/10/19 08:59 Last Admin: 02/09/19 08:01 Dose: 25 mg Documented by: Naloxone HCl (Narcan) 0.1 mg IV UD PRN PRN Reason: Opiate Overdose Stop: 03/09/19 18:41 Ondansetron HCl (Zofran) 4 mg IV Q6H PRN PRN Reason: Nausea And Vomiting Stop: 03/09/19 18:46 Last Admin: 02/08/19 09:41 Dose: 4 mg Documented by: Oxycodone HCl (Roxicodone Immediate Rel) 5 mg PO Q4H PRN PRN Reason: MODERATE Pain (Scale 4,5,6) Stop: 02/21/19 18:46 Pantoprazole Sodium (Protonix) 40 mg PO DAILY [facility] Stop: 03/10/19 08:59 Last Admin: 02/09/19 08:01 Dose: 40 mg Documented by: Polyethylene Glycol (Miralax Powder Packet) 17 gm PO DAILY PRN PRN Reason: Constipation Stop: 03/09/19 18:41 Senna/Docusate Sodium (Senokot S) 2 tab PO HS [facility] Stop: 03/09/19 20:59 Last Admin: 02/08/19 20:21 Dose: Not Given Documented by: Vitamin D (Vitamin D3) 2,000 units PO DAILY [facility] Stop: 03/10/19 08:59 Last Admin: 02/09/19 08:02 Dose: 2,000 units Documented by:
[2019-02-09] MEDS: MAGNESIUM SULFATE / D5W 1 GM/100 ML BAG IV SCH ×2 (10:38→11:58)
[2019-02-09] MEDS ORDERED: Nursing to Pharmacy Communication ONE (11:04)
[2019-02-09] MEDS: OXYCODONE HCL IR 5 MG TAB (IMMEDIATE RELEASE) PO PRN ×2 (12:02→19:23)
[2019-02-09] MEDS: MAGNESIUM OXIDE 400 MG TAB PO SCH (12:03)
[2019-02-09] MEDS: CETIRIZINE HCL 10 MG TABLET PO SCH ×2 (14:40→21:28)
--- NOTE | 2019-02-09 16:29 | Hospitalist Progress Note ---
Date of Service February 09, 2019 Assessment & Plan (1) Left displaced femoral neck fracture: This is an 88-year-old female who presents with mechanical fall and left hip fracture. Mechanical fall and left femoral neck fracture s/p left hip hemiarthroplasty on 02/08/19 -current pain control medications and antiemetics -Chelsie VAC dressings to suction as per orthopedics -will encourage ambulation, PT/OT, will need assistance with toileting, will try to discontinue javed later when sent to medical/surgical floor from telemetry Acute blood loss anemia -Hgb preop 11.2 on 02/08/19 and postop is 9.4 on 02/09/19 -will continue to monitor Wenckebach secondary to vasovagal episode -no known history of cardiac disease -02/08/19: Patient was noted on 11:11 AM to have arrhythmia, perhaps a possible type 2 degree heart block on telemetry monitoring but this resolved rather quickly. patient did report around that time she was feeling nauseated and attributed nausea to pain medications. Has otherwise been asymptomatic. when 12 lead EKGs were completed times x 2, there was no evidence of Type 2 heart block. Throughout this entire period of time patient had no chest chest pain, no shortness of breath, no palpitations, no loss of consciousness. Patient proceeded to have left hip hemiarthroplasty on 02/08/19 without events -on telemetry monitoring patient has been generally in sinus, will transfer off telemetry on 02/09/19 Hypertension -blood pressure controlled -on amlodipine and Toprol-XL and losartan/HCTZ; continue and monitor blood pressure Chronic kidney disease, stage IV creatinine is 1.46 on 02/08/19 which is at baseline renal function is stable History of gastroesophageal reflux disease -Continue Pepcid. History of hypothyroidism -Continue Synthroid. History of allergic contact dermatitis -on cetirizine. Full Code patient's daughter [phone] DVT ppx: heparin q12 hours Subjective Patient seen and examined at bedside. Telemetry in sinus rhythm. patient denies acute chest pain. no palpitations. no shortness of breath. Patient has left thigh somewhat more swollen. Patient has javed. no bowel movement yet Physical Exam Constitutional: WD/WN, vitals as above Eyes: PERRL, conjunctivae normal, anicteric sclerae EOM intact bilaterally ENMT: external ear and nose normal, oropharynx normal Respiratory: normal respiratory effort, lungs clear to auscultation Cardiovascular: RRR, no murmur, no edema Gastrointestinal (Abdomen): normal bowel sounds, soft, nontender, no hepatosplenomegaly Musculoskeletal: Head/Neck/Chest: normocephalic and head atraumatic Neurologic: PERRL, EOMI, accommodation nl, no face palsy, no dysarthria Psychiatric: A+Ox3, euthymic affect Results & Data Vital Signs (Past 12 Hours) Vital Signs Temp Pulse Pulse Resp BP Pulse Ox Pulse Ox 02/09/19 16:14 36.7 C 76 19 109/58 L 96 02/09/19 16:00 78 02/09/19 08:41 37.1 C 94 H 20 130/70 94 02/09/19 08:05 90 02/09/19 08:00 84 84 L
[2019-02-09] MEDS: PATIENT'S HEIGHT AND/OR WEIGHT NEEDED SCH (19:08)
[2019-02-09] MEDS: DOCUSATE SODIUM/SENNA 50/8.6MG TAB PO SCH (21:27)
[2019-02-09] MEDS: AMLODIPINE BESYLATE 5 MG TAB PO SCH (21:27)
[2019-02-09] MEDS: HEPARIN SOD 5,000 UNIT/0.5 ML VIAL SQ SCH (21:28)
[2019-02-10 06:55] LABS: Basophils # (auto) 0.02 K/uL (0-0.2); Basophils % (auto) 0.2 %; Eosinophils # (auto) 0.15 K/uL (0-0.5); Eosinophils % (auto) 1.6 %; Hematocrit (blood only) 26.9 % (37-47); Hemoglobin 9.1 g/dL (12.0-16.0); Immature Granulocytes # (auto) 0.02 K/uL (0.00-0.02); Immature Granulocytes % (auto) 0.2 %; Lymphocytes # (auto) 0.81 K/uL (1.2-3.4); Lymphocytes % (auto) 8.7 %; Mean Corpuscular Hgb Conc 33.8 g/dL (32-36); Mean Corpuscular Volume 93.7 fL (80-100); Mean Platelet Volume 8.7 fL (7.4-10.4); Monocytes # (auto) 0.92 K/uL (0.11-0.59); Monocytes % (auto) 9.9 %; Neutrophils # (auto) 7.34 K/uL (1.4-6.5); Neutrophils % (auto) 79.4 %; Platelet Count 220 K/uL (130-400); RDW Standard Deviation 44.6 fL (36.4-46.3); Red Blood Count 2.87 M/uL (4.2-5.4); White Blood Count 9.26 K/uL (4.8-10.8)
[2019-02-10 07:20] LABS: Albumin Level 2.4 gm/dl (3.4-5.0); BUN Creatinine Ratio 11.9 (10-20); Calcium 8.2 mg/dl (8.5-10.1); Creatinine Clr Calc Pharmacy 27.8 ml/min; Est GFR (African American) 38.1; Est GFR (Non-African American) 32.9; Magnesium 1.9 mg/dl (1.8-2.4); Potassium 3.3 mmol/L (3.5-5.1)
[2019-02-10 07:23] LABS: Albumin Globulin Ratio 0.8 (0.9-2); Bilirubin,Total 0.6 mg/dl (0.2-1); Globulin 3.2 gm/dl (2.5-4.0); Total Protein 5.6 gm/dl (6.4-8.2)
[2019-02-10] MEDS: LEVOTHYROXINE SODIUM 50 MCG TABLET PO SCH (07:25)
[2019-02-10] MEDS ORDERED: POTASSIUM CHLORIDE 20 MEQ TABCR PO STA (07:52)
[2019-02-10] MEDS: MAGNESIUM OXIDE 400 MG TAB PO SCH (08:39)
[2019-02-10] MEDS: LOSARTAN POTASSIUM 50 MG TAB PO SCH (08:39)
[2019-02-10] MEDS: FAMOTIDINE 20 MG TAB PO SCH (08:40)
[2019-02-10] MEDS: ASPIRIN 81 MG ECTAB PO SCH ×2 (08:41→20:59)
[2019-02-10] MEDS: PANTOprazole 40 MG TAB PO SCH (08:41)
[2019-02-10] MEDS: METOPROLOL SUCC 25MG EXT REL TAB PO SCH (08:41)
[2019-02-10] MEDS: CHOLECALCIFEROL 1,000 UNITS TAB PO SCH (08:42)
[2019-02-10] MEDS: CYANOCOBALAMIN 500 MCG TABLET (VITAMIN B-12) PO SCH (08:42)
[2019-02-10] MEDS: LACTOBACILLUS ACIDOPHILUS (FLORANEX) TAB PO SCH (08:43)
[2019-02-10] MEDS: HEPARIN SOD 5,000 UNIT/0.5 ML VIAL SQ SCH ×2 (08:45→21:02)
[2019-02-10] MEDS: OXYCODONE HCL IR 5 MG TAB (IMMEDIATE RELEASE) PO PRN (08:49)
[2019-02-10] MEDS: ACETAMINOPHEN 325 MG TAB PO PRN ×2 (12:43→17:27)
--- NOTE | 2019-02-10 14:37 | Hospitalist Progress Note ---
Date of Service February 10, 2019 Assessment & Plan (1) Left displaced femoral neck fracture: This is an 88-year-old female who presents with mechanical fall and left hip fracture. Mechanical fall and left femoral neck fracture s/p left hip hemiarthroplasty on 02/08/19 -current pain control medications and antiemetics -Chelsie VAC dressings to suction as per orthopedics -PT/OT Acute blood loss anemia -Hgb preop 11.2 on 02/08/19 and postop is 9.4 on 02/09/19 -Hgb is 9.1 on 02/10/19 so CBC is stable Wenckebach secondary to vasovagal episode -no known history of cardiac disease -02/08/19: Patient was noted on 11:11 AM to have arrhythmia, perhaps a possible type 2 degree heart block on telemetry monitoring but this resolved rather quickly. patient did report around that time she was feeling nauseated and attributed nausea to pain medications. Has otherwise been asymptomatic. when 12 lead EKGs were completed times x 2, there was no evidence of Type 2 heart block. Throughout this entire period of time patient had no chest chest pain, no shortness of breath, no palpitations, no loss of consciousness. Patient proceeded to have left hip hemiarthroplasty on 02/08/19 without events -on telemetry monitoring patient has been generally in sinus, will transfer off telemetry on 02/09/19 Hypomagnesemia -admission serum magnesium increased from 1.2 to 1.5 with magnesium repletions and was given further magnesium supplements -serum magnesium is 1.9 on 02/10/19 which is much improved, continue to monitor -hold HCTZ Hypertension -on amlodipine and Toprol-XL , continue -hold further HCTZ, continue Losartan -blood pressure is controlled Chronic kidney disease, stage IV creatinine is 1.46 on 02/08/19 which is at baseline renal function is stable History of gastroesophageal reflux disease -Continue Pepcid. History of hypothyroidism -Continue Synthroid. History of allergic contact dermatitis -on cetirizine. Full Code patient's daughter [phone] DVT ppx: heparin q12 hours disposition: patient is awaiting case management in finding rehabilitation facility for after the hospital stay Subjective Patient seen and examined at bedside. she is breathing on room air. denies acute pain. denies shortness of breath. denies headache or lightheadedness. left thigh/hip has wound vac. no acute pain of the left hip/thigh Physical Exam Constitutional: WD/WN, vitals as above Eyes: PERRL, conjunctivae normal, anicteric sclerae EOM intact bilaterally ENMT: external ear and nose normal, oropharynx normal Neck: trachea midline, no thyromegaly normal visual inspection Respiratory: normal respiratory effort, lungs clear to auscultation Cardiovascular: RRR, no murmur, no edema Gastrointestinal (Abdomen): normal bowel sounds, soft, nontender, no hepatosplenomegaly Musculoskeletal: Head/Neck/Chest: normocephalic and head atraumatic left thigh has wound vac Neurologic: PERRL, EOMI, accommodation nl, no face palsy, no dysarthria Psychiatric: A+Ox3, euthymic affect Results & Data Vital Signs (Past 12 Hours) Vital Signs Temp Pulse Resp BP Pulse Ox 02/10/19 07:59 37.5 C 80 15 152/58 H 93
--- NOTE | 2019-02-10 15:40 | Orthopedic Progress Note ---
Date of Service February 10, 2019 Assessment & Plan (1) Left displaced femoral neck fracture: Overall she is doing fairly well. She was ambulating some in her room today and she is cooperating well with physical therapy. She will be on aspirin 81 mg twice a day for 6 weeks. As long as she is up and moving this should be adequate. She also has stage IV kidney disease so I am holding off on Lovenox for that reason. She is orthopedically stable for discharge when medically ready. The Chelsie VAC dressing will stay on for about 7 days. She can follow-up in our office in 2 to 3 weeks for staple removal. Our office phone number is [phone]. If you have any questions concerning her care please feel free to contact me personally on my cell phone at [phone]. Orthopedic instructions have been listed in the discharge report. oTby Ballesteros was seen and examined at bedside this morning. Overall she is doing very well. Her biggest complaint is soreness in her left thigh but she is not having too much pain in the left hip. She was able to ambulate a little bit in her room today and she is been cooperating well with physical therapy. She is on aspirin for DVT prophylaxis and her pain is well controlled. Physical Exam Musculoskeletal: On physical examination of the left hip, the Chelsie VAC dressings to suction. Her leg lengths are equal. She is active range of motion of her left ankle. She has a little bit of soreness in her left thigh. Results & Data Vital Signs (Past 12 Hours) Vital Signs Temp Pulse Pulse Resp BP Pulse Ox 02/10/19 14:49 37.1 C 78 17 123/56 L 90 02/10/19 07:59 37.5 C 80 15 152/58 H 93
[2019-02-10] MEDS: AMLODIPINE BESYLATE 5 MG TAB PO SCH (21:00)
[2019-02-10] MEDS: CETIRIZINE HCL 10 MG TABLET PO SCH (21:00)
[2019-02-10] MEDS: DOCUSATE SODIUM/SENNA 50/8.6MG TAB PO SCH (21:01)
[2019-02-11] MEDS: LEVOTHYROXINE SODIUM 50 MCG TABLET PO SCH (05:17)
[2019-02-11 08:55] LABS: Basophils # (auto) 0.02 K/uL (0-0.2); Basophils % (auto) 0.2 %; Eosinophils # (auto) 0.21 K/uL (0-0.5); Eosinophils % (auto) 2.6 %; Hematocrit (blood only) 24.8 % (37-47); Hemoglobin 8.4 g/dL (12.0-16.0); Immature Granulocytes # (auto) 0.03 K/uL (0.00-0.02); Immature Granulocytes % (auto) 0.4 %; Lymphocytes # (auto) 1.07 K/uL (1.2-3.4); Lymphocytes % (auto) 13.2 %; Mean Corpuscular Hgb Conc 33.9 g/dL (32-36); Mean Corpuscular Volume 93.9 fL (80-100); Mean Platelet Volume 9.1 fL (7.4-10.4); Monocytes # (auto) 0.91 K/uL (0.11-0.59); Monocytes % (auto) 11.2 %; Neutrophils # (auto) 5.85 K/uL (1.4-6.5); Neutrophils % (auto) 72.4 %; Platelet Count 267 K/uL (130-400); RDW Standard Deviation 44.8 fL (36.4-46.3); Red Blood Count 2.64 M/uL (4.2-5.4); White Blood Count 8.09 K/uL (4.8-10.8)
[2019-02-11] MEDS: HEPARIN SOD 5,000 UNIT/0.5 ML VIAL SQ SCH (09:03)
[2019-02-11] MEDS: CYANOCOBALAMIN 500 MCG TABLET (VITAMIN B-12) PO SCH (09:05)
[2019-02-11] MEDS: CHOLECALCIFEROL 1,000 UNITS TAB PO SCH (09:05)
[2019-02-11] MEDS: PANTOprazole 40 MG TAB PO SCH (09:05)
[2019-02-11] MEDS: LACTOBACILLUS ACIDOPHILUS (FLORANEX) TAB PO SCH (09:05)
[2019-02-11] MEDS: ASPIRIN 81 MG ECTAB PO SCH ×2 (09:06→21:51)
[2019-02-11] MEDS: METOPROLOL SUCC 25MG EXT REL TAB PO SCH (09:06)
[2019-02-11] MEDS: MAGNESIUM OXIDE 400 MG TAB PO SCH (09:06)
[2019-02-11] MEDS: LOSARTAN POTASSIUM 50 MG TAB PO SCH (09:06)
[2019-02-11] MEDS: FAMOTIDINE 20 MG TAB PO SCH (09:10)
[2019-02-11 09:26] LABS: BUN Creatinine Ratio 16.4 (10-20); Calcium 8.4 mg/dl (8.5-10.1); Creatinine Clr Calc Pharmacy 26.5 ml/min
--- NOTE | 2019-02-11 14:03 | Hospitalist Progress Note ---
Date of Service February 11, 2019 Assessment & Plan (1) Left displaced femoral neck fracture: This is an 88-year-old female who presents with mechanical fall and left hip fracture. Mechanical fall and left femoral neck fracture s/p left hip hemiarthroplasty on 02/08/19 -Chelsie VAC dressings which was started postop, will need for a total of 7 days as per orthopedics -current pain control medications and antiemetics -PT/OT Acute blood loss anemia -Hgb preop 11.2 on 02/08/19 and postop is 9.4 on 02/09/19 -Hgb is 9.1 on 02/10/19 -Hgb downtrended to 8.4 on 02/11/19. hold heparin subcutaneous, send ultrasound of venous doppler of left lower extremity, left thigh swelling likely hematoma -send FOBT Wenckebach secondary to vasovagal episode -no known history of cardiac disease -02/08/19: Patient was noted on 11:11 AM to have arrhythmia, perhaps a possible type 2 degree heart block on telemetry monitoring but this resolved rather quickly. patient did report around that time she was feeling nauseated and attributed nausea to pain medications. Has otherwise been asymptomatic. when 12 lead EKGs were completed times x 2, there was no evidence of Type 2 heart block. Throughout this entire period of time patient had no chest chest pain, no shortness of breath, no palpitations, no loss of consciousness. Patient proceeded to have left hip hemiarthroplasty on 02/08/19 without events -on telemetry monitoring patient has been generally in sinus, will transfer off telemetry on 02/09/19 Hypomagnesemia -admission serum magnesium increased from 1.2 to 1.5 with magnesium repletions and was given further magnesium supplements -serum magnesium is 1.9 on 02/10/19 which is much improved, continue to monitor -hold HCTZ Hypertension -on amlodipine and Toprol-XL , continue -hold further HCTZ, continue Losartan -blood pressure is controlled Chronic kidney disease, stage IV creatinine is 1.46 on 02/08/19 which is at baseline renal function is stable History of gastroesophageal reflux disease -Continue Pepcid. History of hypothyroidism -Continue Synthroid. History of allergic contact dermatitis -on cetirizine. Full Code patient's daughter [phone] DVT ppx: heparin q12 hours held for now because of anemia, can continue SCDs or TEDs if ultrasound lower extremity rules out DVT disposition: patient may go to rehabilitation facility for after the hospital stay at [facility] [place] if hemoglobin remains stable and no other acute issues by 02/12/19 Subjective Patient seen and examined at bedside. continues to be breathing on room air. she is comfortable. [facility] [place] has accepted the patient but hemoglobin downtrending which may correlate with the left thigh swelling. patient likely with hematoma. will hold subcutaneous heparin injections for now. discussed with patient plans to monitor until stable Hgb. patient agrees to ultrasound lower ex tremity of left leg to rule out blood clot in the veins patient has no chest pain, no shortness of breath, no palpitations, is hemodynamically stable and regular heart rate, breathing on room air, no lightheadedness. no dizziness. had bowel movement Physical Exam Constitutional: WD/WN, vitals as above Eyes: PERRL, conjunctivae normal, anicteric sclerae EOM intact bilaterally ENMT: external ear and nose normal, oropharynx normal Neck: trachea midline, no thyromegaly normal visual inspection Respiratory: normal respiratory effort, lungs clear to auscultation Cardiovascular: RRR, no murmur, no edema Gastrointestinal (Abdomen): normal bowel sounds, soft, nontender, no hepatosplenomegaly Musculoskeletal: Head/Neck/Chest: normocephalic and head atraumatic increase in left thigh swelling Neurologic: PERRL, EOMI, accommodation nl, no face palsy, no dysarthria Psychiatric: A+Ox3, euthymic affect Results & Data Vital Signs (Past 12 Hours) Vital Signs Temp Pulse Resp BP Pulse Ox 02/11/19 07:29 37.2 C 89 15 129/53 L 92
--- NOTE | 2019-02-11 14:47 | Ultrasound Report ---
ULTRASOUND LEFT LOWER EXTREMITY VENOUS CLINICAL HISTORY: Calf pain. Recent surgery. COMPARISON STUDY: No priors. TECHNIQUE: Real-time, grayscale, and color Doppler sonography of the deep veins of the left lower ext remity was performed from the inguinal crease to the calf. Compression and augmentation were utilized . FINDINGS: There is no sonographic evidence of deep venous thrombosis identified in the left lower ext remity. The common femoral, superficial femoral, and popliteal veins are patent and normally compress ible. The greater saphenous vein and the profunda femoris vein at the junction with the common femora l vein are clear. The visualized calf veins are patent. IMPRESSION: There is no sonographic evidence of deep venous thrombosis identified in the left lower e xtremity. Electronically signed by: Prince Stephens M.D. 02/11/2019 2:46 PM
[2019-02-11] MEDS: ACETAMINOPHEN 325 MG TAB PO PRN ×2 (18:34→23:40)
[2019-02-11] MEDS: DOCUSATE SODIUM/SENNA 50/8.6MG TAB PO SCH (21:48)
[2019-02-11] MEDS: AMLODIPINE BESYLATE 5 MG TAB PO SCH (21:51)
[2019-02-11] MEDS: CETIRIZINE HCL 10 MG TABLET PO SCH (21:51)
[2019-02-12] MEDS: LEVOTHYROXINE SODIUM 50 MCG TABLET PO SCH (05:32)
[2019-02-12 08:27] LABS: Basophils # (auto) 0.03 K/uL (0-0.2); Basophils % (auto) 0.5 %; Eosinophils # (auto) 0.31 K/uL (0-0.5); Eosinophils % (auto) 4.7 %; Hematocrit (blood only) 27.2 % (37-47); Hemoglobin 9.2 g/dL (12.0-16.0); Immature Granulocytes # (auto) 0.03 K/uL (0.00-0.02); Immature Granulocytes % (auto) 0.5 %; Lymphocytes # (auto) 1.11 K/uL (1.2-3.4); Lymphocytes % (auto) 16.7 %; Mean Corpuscular Hgb Conc 33.8 g/dL (32-36); Mean Corpuscular Volume 94.1 fL (80-100); Mean Platelet Volume 8.8 fL (7.4-10.4); Monocytes # (auto) 0.74 K/uL (0.11-0.59); Monocytes % (auto) 11.2 %; Neutrophils # (auto) 4.41 K/uL (1.4-6.5); Neutrophils % (auto) 66.4 %; Platelet Count 298 K/uL (130-400); RDW Standard Deviation 45.1 fL (36.4-46.3); Red Blood Count 2.89 M/uL (4.2-5.4); White Blood Count 6.63 K/uL (4.8-10.8)
[2019-02-12] MEDS: ACETAMINOPHEN 325 MG TAB PO PRN (08:42)
[2019-02-12] MEDS: CYANOCOBALAMIN 500 MCG TABLET (VITAMIN B-12) PO SCH (08:43)
[2019-02-12] MEDS: CHOLECALCIFEROL 1,000 UNITS TAB PO SCH (08:43)
[2019-02-12] MEDS: METOPROLOL SUCC 25MG EXT REL TAB PO SCH (08:44)
[2019-02-12] MEDS: LACTOBACILLUS ACIDOPHILUS (FLORANEX) TAB PO SCH (08:44)
[2019-02-12] MEDS: LOSARTAN POTASSIUM 50 MG TAB PO SCH (08:45)
[2019-02-12] MEDS: MAGNESIUM OXIDE 400 MG TAB PO SCH (08:45)
[2019-02-12] MEDS: PANTOprazole 40 MG TAB PO SCH (08:45)
[2019-02-12] MEDS: ASPIRIN 81 MG ECTAB PO SCH (08:45)
[2019-02-12] MEDS: FAMOTIDINE 20 MG TAB PO SCH (08:48)
[2019-02-12] MEDS ORDERED: LOSARTAN POTASSIUM 50 MG TAB PO SCH (10:00)
[2019-02-12] MEDS ORDERED: LOSARTAN POTASSIUM 50 MG TAB PO STA (10:02)
--- NOTE | 2019-02-12 10:25 | Hospitalist Progress Note ---
Date of Service February 12, 2019 Assessment & Plan (1) Left displaced femoral neck fracture: This is an 88-year-old female who presents with mechanical fall and left hip fracture. Mechanical fall and left femoral neck fracture s/p left hip hemiarthroplasty on 02/08/19 -Chelsie VAC dressings which was started postop, will need for a total of 7 days as per orthopedics -current pain control medications and antiemetics -Discharge for physical rehabilitation to [facility] -will be on aspirin 81 mg twice a day for 6 weeks. -The Chelsie VAC dressing will stay on for about 7 days (s/p left hip hemiarthroplasty on 02/08/19 and the VAC dressings were placed at that time) follow-up in orthopedic clinic in 2 to 3 weeks for staple removal. office phone number is [phone]. If any questions contact orthopedic Dr. Ye on cell phone at [phone]. -Patient may take acetaminophen 325 every 6 hours as needed for mild pain or fever for next 5 days Patient may take oxycodone 5 mg every 4 hours as needed for moderate or severe pain for the next 4 days ([facility] was check and patient has no controlled substances in the past year prior to this hospital stay and patient has pain from s/p left hip surgery) -Patient to senna/colace stool softeners while on narcotic pain medications Acute blood loss anemia -Hgb preop 11.2 on 02/08/19 and postop is 9.4 on 02/09/19 -Hgb is 9.1 on 02/10/19 -Hgb downtrended to 8.4 on 02/11/19. hold heparin subcutaneous, send ultrasound of venous doppler of left lower extremity, left thigh swelling likely hematoma -There is no sonographic evidence of deep venous thrombosis identified in the left lower extremity 02/11/19; SCDs resumed and heparin subcutaneous were held -Hgb stable on 02/12/19 as 9.2 -will be on aspirin 81 mg twice a day for 6 weeks for further DVT prophylaxis W[place]kebach secondary to vasovagal episode -no known history of cardiac disease -02/08/19: Patient was noted on 11:11 AM to have arrhythmia, perhaps a possible type 2 degree heart block on telemetry monitoring but this resolved rather quickly. patient did report around that time she was feeling nauseated and attributed nausea to pain medications. Has otherwise been asymptomatic. when 12 lead EKGs were completed times x 2, there was no evidence of Type 2 heart block. Throughout this entire period of time patient had no chest chest pain, no shortness of breath, no palpitations, no loss of consciousness. Patient proceeded to have left hip hemiarthroplasty on 02/08/19 without events -on telemetry monitoring patient has been generally in sinus, will transfer off telemetry on 02/09/19 -no other cardiac issues since that time Hypomagnesemia -admission serum magnesium increased from 1.2 to 1.5 with magnesium repletions and was given further magnesium supplements -serum magnesium is 1.9 on 02/10/19 which is much improved, continue to monitor -hold HCTZ -Patient should take magnesium 400 mg daily for 2 weeks and have serum potassium and magnesium levels checked by primary care doctor in 1 to 2 weeks Hypertension -on amlodipine and Toprol-XL , continue -hold further HCTZ, continue Losartan -On discharge Patient informed she had blood pressure medications changed due to hypomagnesemia and hypokalemia while in the hospital: Patient should take losartan 100 mg daily instead of Losartan/HCTZ. Patient may continue amlodipine 5 mg daily for hypertension Chronic kidney disease, stage IV creatinine is 1.46 on 02/08/19 which is at baseline renal function is stable History of gastroesophageal reflux disease -Continue Pepcid. History of hypothyroidism -Continue Synthroid. History of allergic contact dermatitis -on cetirizine. Full Code patient's daughter [phone] Main discharge diagnosis Mechanical fall and left femoral neck fracture, s/p left hip hemiarthroplasty on 02/08/19, acute blood loss anemia, Hypomagnesemia, Hypertension, Chronic kidney disease, stage IV Discharge Instructions Discharge for physical rehabilitation to [facility] will be on aspirin 81 mg twice a day for 6 weeks. The Chelsie VAC dressing will stay on for about 7 days (s/p left hip hemiarthroplasty on 02/08/19 and the VAC dressings were placed at that time) follow-up in orthopedic clinic in 2 to 3 weeks for staple removal. office phone number is [phone]. If any questions contact orthopedic Dr. Ye on cell phone at [phone]. Patient may take acetaminophen 325 every 6 hours as needed for mild pain or fever for next 5 days Patient may take oxycodone 5 mg every 4 hours as needed for moderate or severe pain for the next 4 days ([facility] was check and patient has no controlled substances in the past year prior to this hospital stay and patient has pain from s/p left hip surgery) Patient to senna/colace stool softeners while on narcotic pain medications Patient had blood pressure medications changed due to hypomagnesemia and hypokalemia Patient should take losartan 100 mg daily instead of Losartan/HCTZ. Patient may continue amlodipine 5 mg daily for hypertension Patient should take magnesium 400 mg daily for 2 weeks and have serum potassium and magnesium levels checked by primary care doctor in 1 to 2 weeks ORTHOPEDIC INSTRUCTIONS Hip Hemiarthroplasty Activity and Therapy Recommendations: 1. You were shown a series of exercises in the hospital. Do these exercises three times each day if you are able. 2. Get up and walk several times each day if you are capable. Make sure you have assistance is needed. For the first four weeks, try not to stand or walk for more than one hour at a time. If you do stand or walk for more than one hour, you will not hurt anything, but your leg will likely swell. 3. As you feel comfortable, you may change from the walker or crutches to a cane and then to independent walking if you are able. Please be safe. Medications: 1. Narcotic You will likely be sent from the hospital with the narcotic pain medication that worked best throughout your stay. 2. Aspirin You will be required to take Aspirin 81mg twice a day for 6 weeks after surgery to prevent blood clots. 3. Other medications may be given for specific circumstances. If you have any questions, please call the office at [phone]. 4. Resume previous home medications unless otherwise instructed TEDs/Elastic Stockings: The white elastic stockings help limit swelling and prevent blood clots from forming in your legs. The more you wear them, the more they work. Wear them for six weeks. Dressing Care: You will likely have a purple VAC dressing after surgery. This dressing will keep the incision dry and promote early healing. After about 8 days the batteries will wear out and the VAC will lose suction. Simply remove the dressing at that time and throw everything away, including the small suction machine. Then, you may leave the penny open to air or cover them with a dry dressing so they do not rub on your pants. The penny will be removed at your 2 week follow-up appointment. Showering: You may shower immediately with the purple VAC dressing. Let the shower spray hit your opposite side and slowly pat the plastic dry. Do not soak the dressing. After the dressing is removed you may shower normally with the penny exposed. Let soapy water run over the penny and pat them dry. Things To Watch For: 1. Drainage from the incision site that occurs more than one week after your surgery. 2. Increased redness at the incision site. 3. Fever above 102 degrees Fahrenheit. 4. Unusual chest pain or shortness of breath. 5. Call [facility] at with any of the above problems Follow-Up Visit: Follow-up with Dr. Ye 2-3 weeks after your day of surgery. Please call to make an appointment or be sure your rehab facility has made one. If you have any questions call Subjective Patient seen and examined at bedside. She was able to ambulate from bathroom to bed earlier this AM. She was able to work with therapist. blood pressure was mildly elevated to systolic 167. no lightheadedness. no dizziness. patient did feel sweaty yesterday night. no fever. patient denies chest pain. no shortness of breath. no abdomen pain. left hip and leg pain controlled. left leg swelling stable. Hgb is stable. Physical Exam Constitutional: WD/WN, vitals as above Eyes: PERRL, conjunctivae normal, anicteric sclerae EOM intact bilaterally ENMT: external ear and nose normal, oropharynx normal Neck: trachea midline, no thyromegaly normal visual inspection Respiratory: normal respiratory effort, lungs clear to auscultation Cardiovascular: RRR, no murmur, no edema Gastrointestinal (Abdomen): normal bowel sounds, soft, nontender, no hepatosplenomegaly Musculoskeletal: Head/Neck/Chest: normocephalic and head atraumatic Neurologic: PERRL, EOMI, accommodation nl, no face palsy, no dysarthria Psychiatric: A+Ox3, euthymic affect Results & Data Vital Signs (Past 12 Hours) Vital Signs Temp Pulse Pulse Resp BP BP Pulse Ox 06/05/19 07:45 36.8 C 76 14 167/66 H 95 02/11/19 23:30 02/11/19 23:03 36.9 C 74 16 166/77 H 152/73 H 93 Pulse Ox 02/12/19 07:45 02/11/19 23:30 93 02/11/19 23:03
--- NOTE | 2019-02-12 10:34 | Discharge Summary ---
Date of Service February 12, 2019 Admission HPI Per Admitting Provider CHIEF COMPLAINT: Status post fall and left hip fracture. HISTORY OF PRESENT ILLNESS: This is an 88-year-old female with past medical history significant for hyperlipidemia, acute hypothyroidism, hypertension, irritable bowel syndrome, GERD, chronic kidney disease stage IV, osteoporosis, generalized osteoarthritis, cervical spondylosis with myelopathy, allergic contact dermatitis. Had a mechanical fall today. The patient lives alone. She went to the mailbox; when she was turning, she slipped and fell. She was able to get up and she went to the bathroom and she suddenly felt something pop in her hip and she could not move, had severe pain, and went to the [facility]. There imaging studies showed left hip fracture and there was no ortho coverage in [facility], so she was transferred here. The [facility] physician talked to ortho here and was accepted and transferred. The patient has significant pain and requesting for pain medication. She says her balance is not that great recently and 1 week ago she also fell at home. Otherwise, no other complaints. Denies any headache, no dizziness, no blurred vision, no earache, no runny nose, no sore throat, no cough, no recent fever or chills, no difficulty swallowing. No chest pain, no shortness of breath, no nausea, no abdominal pain. Normal bowel and bladder movements. No blood in the stools, no hematuria. Currently resting comfortably.Patient says before this incident she can walk long distances and climb steps ok. ALLERGIES: IBUPROFEN, ALENDRONATE, AMOXICILLIN, CIPROFLOXACIN, IVP DYE, ZOCOR, METOCLOPRAMIDE, MORPHINE. PAST MEDICAL HISTORY: As mentioned above. PAST SURGICAL HISTORY: Left total knee arthroplasty, colonoscopy, EGDs, injection of the lumbar and cervical spine, knee arthroscopy, laparoscopic cholecystectomy, colon resection, appendectomy, removal of ovarian cyst, oophorectomy, total abdominal hysterectomy with removal of the tubes. MEDICATIONS: The patient is on levothyroxine 50 mcg p.o. daily, amlodipine 5 mg p.o. daily, losartan and hydrochlorothiazide 100/25 mg 1 tablet in the morning, Tylenol ER 650 mg p.o. every 8 hours p.r.n., Toprol-XL 25 mg p.o. daily, vitamin B12 1000 mcg daily, omeprazole 20 mg p.o. daily, biotin 5 mg p.o. daily, vitamin D 2000 units p.o. daily, famotidine 20 mg p.o. daily, probiotic daily, Zyrtec 10 mg p.o. daily, aspirin 81 mg p.o. daily. FAMILY HISTORY: Significant for daughter has melanoma, brother has IA, father with heart disorder. SOCIAL HISTORY: , lives alone. No smoking. Alcohol rarely. No drug use. REVIEW OF SYMPTOMS: As per HPI. Rest of the review of symptoms negative. Admission Exam Per Admitting Provider PHYSICAL EXAMINATION: GENERAL: The patient is old and frail, not in acute distress. VITAL SIGNS: At [facility], temperature 36.5, pulse 77, blood pressure 150/54, oxygen 96%, respiratory rate 18. HEENT: No pallor, no icterus. NECK: No neck masses. Supple. CARDIOVASCULAR: S1, S2 heard, regular rate and rhythm, no murmur, no gallop. RESPIRATORY SYSTEM: Normal AP diameter. No accessory muscle use. No wheezing, no crackles. ABDOMEN: Soft, bowel sounds present. Nontender. No distention. CENTRAL NERVOUS SYSTEM: Nonfocal. EXTREMITIES: Left lower extremity is shortened and externally rotated. No erythema seen. Principal Diagnosis Mechanical fall and left femoral neck fracture, s/p left hip hemiarthroplasty on 02/08/19, acute blood loss anemia, Hypomagnesemia, Hypertension, Chronic kidney disease, stage IV Discharge Exam Constitutional WD/WN, vitals as above Eyes PERRL, conjunctivae normal, anicteric sclerae EOM intact bilaterally ENMT external ear and nose normal, oropharynx normal Neck trachea midline, no thyromegaly normal visual inspection Respiratory normal respiratory effort, lungs clear to auscultation Cardiovascular RRR, no murmur, no edema Gastrointestinal (Abdomen) normal bowel sounds, soft, nontender, no hepatosplenomegaly Musculoskeletal Head/Neck/Chest: normocephalic and head atraumatic left thigh swelling Neurologic PERRL, EOMI, accommodation nl, no face palsy, no dysarthria Psychiatric A+Ox3, euthymic affect Discharge Data Allergies Allergy/AdvReac Type Severity Reaction Status Date / Time amoxicillin Allergy Intermediate RASH Verified 02/08/19 19:42 ciprofloxacin Allergy Intermediate HIVES Verified 02/08/19 19:42 Iodinated Contrast- Oral and Allergy Intermediate HIVES, Verified 02/08/19 19:42 IV Dye FLUSHING, "TURNED RED" vancomycin Allergy Mild RASH Verified 10/30/17 21:17 Cipro Allergy Unknown HIVES Verified 10/02/17 14:09 ibuprofen Allergy Unknown SWELLING Verified 10/02/17 14:09 metoclopramide Allergy Unknown UNKNOWN Verified 10/02/17 14:09 RXN PER PATIENT alendronate sodium AdvReac Mild GI ISSUES Verified 02/08/19 19:42 morphine AdvReac Mild NAUSEA AND Verified 02/08/19 19:42 VOMITING simvastatin AdvReac Mild MUSCLE Verified 02/08/19 19:42 COMPLAINTS Consultations 02/07/19 18:42 Consult Orthopedic Surgery Routine 02/07/19 18:45 Consult Anesthesiology Routine Consult Case Management - Discharge Planning Routine Consult Case Management - Discharge Planning Routine 02/08/19 12:05 Consult Cardiology Routine Procedures Performed Operation Date: 02/08/19 13:00 Actual Procedures p Bipolar Hip Arthroplasty Anterior Approach(Left) - Bryan Ye, Ordered Studies 02/08/19 FL fluoroscopy <1hr Routine FL hip LT 1V Routine 02/11/19 13:57 US venous doppler LE LT Stat Hospital Course (1) Left displaced femoral neck fracture: This is an 88-year-old female who presents with mechanical fall and left hip fracture. Mechanical fall and left femoral neck fracture s/p left hip hemiarthroplasty on 02/08/19 -Chelsie VAC dressings which was started postop, will need for a total of 7 days as per orthopedics -current pain control medications and antiemetics -Discharge for physical rehabilitation to [facility] -will be on aspirin 81 mg twice a day for 6 weeks. -The Chelsie VAC dressing will stay on for about 7 days (s/p left hip hemiarthroplasty on 02/08/19 and the VAC dressings were placed at that time) follow-up in orthopedic clinic in 2 to 3 weeks for staple removal. office phone number is [phone]. If any questions contact orthopedic Dr. Ye on cell phone at [phone]. -Patient may take acetaminophen 325 every 6 hours as needed for mild pain or fever for next 5 days Patient may take oxycodone 5 mg every 4 hours as needed for moderate or severe pain for the next 4 days ([place] PDMP was check and patient has no controlled substances in the past year prior to this hospital stay and patient has pain from s/p left hip surgery) -Patient to senna/colace stool softeners while on narcotic pain medications Acute blood loss anemia -Hgb preop 11.2 on 02/08/19 and postop is 9.4 on 02/09/19 -Hgb is 9.1 on 02/10/19 -Hgb downtrended to 8.4 on 02/11/19. hold heparin subcutaneous, send ultrasound of venous doppler of left lower extremity, left thigh swelling likely hematoma -There is no sonographic evidence of deep venous thrombosis identified in the left lower extremity 02/11/19; SCDs resumed and heparin subcutaneous were held -Hgb stable on 02/12/19 as 9.2 -will be on aspirin 81 mg twice a day for 6 weeks for further DVT prophylaxis Wenckebach secondary to vasovagal episode -no known history of cardiac disease -02/08/19: Patient was noted on 11:11 AM to have arrhythmia, perhaps a possible type 2 degree heart block on telemetry monitoring but this resolved rather quickly. patient did report around that time she was feeling nauseated and attributed nausea to pain medications. Has otherwise been asymptomatic. when 12 lead EKGs were completed times x 2, there was no evidence of Type 2 heart block. Throughout this entire period of time patient had no chest chest pain, no shortness of breath, no palpitations, no loss of consciousness. Patient proceeded to have left hip hemiarthroplasty on 02/08/19 without events -on telemetry monitoring patient has been generally in sinus, will transfer off telemetry on 02/09/19 -no other cardiac issues since that time Hypomagnesemia -admission serum magnesium increased from 1.2 to 1.5 with magnesium repletions and was given further magnesium supplements -serum magnesium is 1.9 on 02/10/19 which is much improved, continue to monitor -hold HCTZ -Patient should take magnesium 400 mg daily for 2 weeks and have serum potassium and magnesium levels checked by primary care doctor in 1 to 2 weeks Hypertension -on amlodipine and Toprol-XL , continue -hold further HCTZ, continue Losartan -On discharge Patient informed she had blood pressure medications changed due to hypomagnesemia and hypokalemia while in the hospital: Patient should take lo sartan 100 mg daily instead of Losartan/HCTZ. Patient may continue amlodipine 5 mg daily for hypertension Chronic kidney disease, stage IV creatinine is 1.46 on 02/08/19 which is at baseline renal function is stable History of gastroesophageal reflux disease -Continue Pepcid. History of hypothyroidism -Continue Synthroid. History of allergic contact dermatitis -on cetirizine. Full Code patient's daughter [phone] Main discharge diagnosis Mechanical fall and left femoral neck fracture, s/p left hip hemiarthroplasty on 02/08/19, acute blood loss anemia, Hypomagnesemia, Hypertension, Chronic kidney disease, stage IV Discharge Instructions Discharge for physical rehabilitation to [facility] will be on aspirin 81 mg twice a day for 6 weeks. The Chelsie VAC dressing will stay on for about 7 days (s/p left hip hemiarthroplasty on 02/08/19 and the VAC dressings were placed at that time) follow-up in orthopedic clinic in 2 to 3 weeks for staple removal. office phone number is [phone]. If any questions contact orthopedic Dr. Ye on cell phone at [phone]. Patient may take acetaminophen 325 every 6 hours as needed for mild pain or fever for next 5 days Patient may take oxycodone 5 mg every 4 hours as needed for moderate or severe pain for the next 4 days ([facility] was check and patient has no contr olled substances in the past year prior to this hospital stay and patient has pain from s/p left hip surgery) Patient to senna/colace stool softeners while on narcotic pain medications Patient had blood pressure medications changed due to hypomagnesemia and hypokalemia Patient should take losartan 100 mg daily instead of Losartan/HCTZ. Patient may continue amlodipine 5 mg daily for hypertension Patient should take magnesium 400 mg daily for 2 weeks and have serum potassium and magnesium levels checked by primary care doctor in 1 to 2 weeks ORTHOPEDIC INSTRUCTIONS Hip Hemiarthroplasty Activity and Therapy Recommendations: 1. You were shown a series of exercises in the hospital. Do these exercises three times each day if you are able. 2. Get up and walk several times each day if you are capable. Make sure you have assistance is needed. For the first four weeks, try not to stand or walk for more than one hour at a time. If you do stand or walk for more than one hour, you will not hurt anything, but your leg will likely swell. 3. As you feel comfortable, you may change from the walker or crutches to a cane and then to independent walking if you are able. Please be safe. Medications: 1. Narcotic You will likely be sent from the hospital with the narcotic pain medication that worked best throughout your stay. 2. Aspirin You will be required to take Aspirin 81mg twice a day for 6 weeks after surgery to prevent blood clots. 3. Other medications may be given for specific circumstances. If you have any questions, please call the office at [phone]. 4. Resume previous home medications unless otherwise instructed TEDs/Elastic Stockings: The white elastic stockings help limit swelling and prevent blood clots from forming in your legs. The more you wear them, the more they work. Wear them for six weeks. Dressing Care: You will likely have a purple VAC dressing after surgery. This dressing will keep the incision dry and promote early healing. After about 8 days the batteries will wear out and the VAC will lose suction. Simply remove the dressing at that time and throw everything away, including the small suction machine. Then, you may leave the penny open to air or cover them with a dry dressing so they do not rub on your pants. The penny will be removed at your 2 week follow-up appointment. Showering: You may shower immediately with the purple VAC dressing. Let the shower spray hit your opposite side and slowly pat the plastic dry. Do not soak the dressing. After the dressing is removed you may shower normally with the penny exposed. Let soapy water run over the penny and pat them dry. Things To Watch For: 1. Drainage from the incision site that occurs more than one week after your surgery. 2. Increased redness at the incision site. 3. Fever above 102 degrees Fahrenheit. 4. Unusual chest pain or shortness of breath. 5. Call [facility] at with any of the above problems Follow-Up Visit: Follow-up with Dr. Ye 2-3 weeks after your day of surgery. Please call to make an appointment or be sure your rehab facility has made one. If you have any questions call Total Time Total Time Spent Total Time Spent (In Minutes): 40 minutes Total Time Includes: Examination of the Patient, Discharge Planning, Medication Reconciliation and Communication With Other Providers Discharge Plan Discharge Items Patient Disposition: Transfer Inpatient Rehab Fac Reason For Visit: L FEMORAL NECK FRACTURE Discharge Diagnosis: Mechanical fall and left femoral neck fracture, s/p left hip hemiarthroplasty on 02/08/19, acute blood loss anemia, Hypomagnesemia, Hypertension, Chronic kidney disease, stage IV Condition: Good Discharge Goals: Improve function Activity: Per 'Additional Instructions' section Non-emergency contact: Primary Care Provider Call non-emergency contact if: you have any medication questions Follow-up/Referrals: Isaura Rodriguez CRNP [Primary Care Provider] - Diet: Regular Addtl Provider Instructions: Discharge Instructions Discharge for physical rehabilitation to [facility] will be on aspirin 81 mg twice a day for 6 weeks. The Chelsie VAC dressing will stay on for about 7 days (s/p left hip hemiarthroplasty on 02/08/19 and the VAC dressings were placed at that time) follow-up in orthopedic clinic in 2 to 3 weeks for staple removal. office phone number is [phone]. If any questions contact orthopedic Dr. Ye on cell phone at [phone]. Patient may take acetaminophen 325 every 6 hours as needed for mild pain or fever for next 5 days Patient may take oxycodone 5 mg every 4 hours as needed for moderate or severe pain for the next 4 days ([facility] was check and patient has no controlled substances in the past year prior to this hospital stay and patient has pain from s/p left hip surgery) Patient to senna/colace stool softeners while on narcotic pain medications Patient had blood pressure medications changed due to hypomagnesemia and hypokalemia Patient should take losartan 100 mg daily instead of Losartan/HCTZ. Patient may continue amlodipine 5 mg daily for hypertension Patient should take magnesium 400 mg daily for 2 weeks and have serum potassium and magnesium levels checked by primary care doctor in 1 to 2 weeks ORTHOPEDIC INSTRUCTIONS Hip Hemiarthroplasty Activity and Therapy Recommendations: 1. You were shown a series of exercises in the hospital. Do these exercises three times each day if you are able. 2. Get up and walk several times each day if you are capable. Make sure you have assistance is needed. For the first four weeks, try not to stand or walk for more than one hour at a time. If you do stand or walk for more than one hour, you will not hurt anything, but your leg will likely swell. 3. As you feel comfortable, you may change from the walker or crutches to a cane and then to independent walking if you are able. Please be safe. Medications: 1. Narcotic You will likely be sent from the hospital with the narcotic pain medication that worked best throughout your stay. 2. Aspirin You will be required to take Aspirin 81mg twice a day for 6 weeks after surgery to prevent blood clots. 3. Other medications may be given for specific circumstances. If you have any questions, please call the office at [phone]. 4. Resume previous home medications unless otherwise instructed TEDs/Elastic Stockings: The white elastic stockings help limit swelling and prevent blood clots from forming in your legs. The more you wear them, the more they work. Wear them for six weeks. Dressing Care: You will likely have a purple VAC dressing after surgery. This dressing will keep the incision dry and promote early healing. After about 8 days the batteries will wear out and the VAC will lose suction. Simply remove the dressing at that time and throw everything away, including the small suction machine. Then, you may leave the penny open to air or cover them with a dry dressing so they do not rub on your pants. The pneny will be removed at your 2 week follow-up appointment. Showering: You may shower immediately with the purple VAC dressing. Let the shower spray hit your opposite side and slowly pat the plastic dry. Do not soak the dressing. After the dressing is removed you may shower normally with the penny exposed. Let soapy water run over the penny and pat them dry. Things To Watch For: 1. Drainage from the incision site that occurs more than one week after your surgery. 2. Increased redness at the incision site. 3. Fever above 102 degrees Fahrenheit. 4. Unusual chest pain or shortness of breath. 5. Call [facility] at with any of the above problems Follow-Up Visit: Follow-up with Dr. Ye 2-3 weeks after your day of surgery. Please call to make an appointment or be sure your rehab facility has made one. If you have any questions call Prescriptions: New losartan 100 mg tablet 100 mg PO QAM 30 Days Qty: 30 RF: 0 aspirin [Ecotrin Low Strength] 81 mg Tablet,Delayed Release (Dr/Ec) 81 mg PO BID 42 Days Qty: 84 RF: 0 magnesium oxide 400 mg (241.3 mg magnesium) Tablet 400 mg PO QAM 15 Days Qty: 15 RF: 0 acetaminophen [Mapap (acetaminophen)] 325 mg Tablet 325 mg PO Q6H PRN (Reason: fever or mild pain) 5 Days Qty: 20 RF: 0 oxycodone 5 mg Tablet 5 mg PO Q4H PRN (Reason: moderate to severe pain) 4 Days Qty: 16 RF: 0 sennosides [Senokot] 8.6 mg Tablet 8.6 mg PO QAM 10 Days Qty: 10 RF: 0 docusate sodium 100 mg Capsule 100 mg PO BID 10 Days Qty: 20 RF: 0 Continued cetirizine 10 mg Tablet 10 mg PO DAILY RF: 0 biotin 5 mg Capsule 5 mg PO DAILY RF: 0 cyanocobalamin (vitamin B-12) [Vitamin B-12] 1,000 mcg Tablet 1,000 mcg PO DAILY RF: 0 amlodipine 5 mg Tablet 5 mg PO DAILY RF: 0 acetaminophen 650 mg Tablet Extended Release 650 mg PO Q8H PRN (Reason: Pain) RF: 0 famotidine 20 mg Tablet 20 mg PO DAILY RF: 0 levothyroxine 50 mcg Tablet 50 mcg PO DAILY RF: 0 omeprazole 20 mg Capsule,Delayed Release(Dr/Ec) 20 mg PO DAILY RF: 0 metoprolol succinate 25 mg Tablet Extended Release 24 Hr 25 mg PO DAILY RF: 0 cholecalciferol (vitamin D3) 2,000 unit Capsule 2,000 unit PO DAILY RF: 0 Probiotic 3 billion cell Capsule 3,000 mmu cells PO DAILY RF: 0 Discontinued aspirin [Aspir-81] 81 mg Tablet,Delayed Release (Dr/Ec) 81 mg PO DAILY RF: 0 losartan-hydrochlorothiazide 100-25 mg Tablet 1 tab PO DAILY RF: 0 Stand-Alone Forms: [facility] Discharge Orders: Discharge Order (Routine); Ordered 02/12/19 Ordered By: Danny Fisher Skilled Items Patient informed of condition?: Yes DNR: No Discharge Level of Care: Acute rehab Communicable Disease: No Discharge Prognosis: Stable Admission Data Admit Date/Time: 02/07/19 22:17 Attending Provider: Danny Fisher Admit Provider: Cesar Strong Primary Care Provider: Isaura Rodriguez Other Providers: Bryan Ye ; Duran Mc ; Duran Carcamo Service: Medical
[2019-02-12] MEDS ORDERED: DOCUSATE SODIUM 100 MG CAP PO SCH (21:00)
[2019-02-13] MEDS ORDERED: LOSARTAN POTASSIUM 50 MG TAB PO SCH (09:00)
[2019-02-13] MEDS ORDERED: SENNA 8.6 MG TAB PO SCH (09:00)
== END 2019-02-12 13:45 | DRG 470 ==
LOC: 2N 22:17 → 3W 02-09 17:26